=== PATIENT | male | born 1965 | race Caucasian/White ===

== ENCOUNTER 2017-04-26 05:23 | Day surgery (SDC) | payer OTHER ==
[2017-04-19 10:03] LABS: HEMATOCRIT 43.2 % (37.9-51.0); HEMOGLOBIN 15.3 g/dL (13.5-17.0); HGB HCT DIFFERENCE 2.7; MEAN CORPUSCULAR HEMOGLOBIN 30.5 pg (27.0-33.4); MEAN CORPUSCULAR HGB CONC 35.4 g/dL (32.0-36.0); MEAN CORPUSCULAR VOLUME 86 fl (80-97); RED BLOOD COUNT 5.01 10^6/uL (4.35-5.55); RED CELL DISTRIBUTION WIDTH 12.5 % (11.5-14.0); WHITE BLOOD COUNT 6.1 10^3/uL (4.0-10.5)
[2017-04-19 10:21] LABS: ANION GAP 11 (5-19); BLOOD UREA NITROGEN 13 mg/dL (7-20); CARBON DIOXIDE 27 mmol/L (22-30); CHLORIDE 105 mmol/L (98-107); CREATININE RESULT 0.75 mg/dL (0.52-1.25); GLUCOSE 99 mg/dL (75-110); POTASSIUM 4.3 mmol/L (3.6-5.0); SODIUM 142.6 mmol/L (137-145)
[~2017-04-26 05:23] MED LIST: CEFAZOLIN 1 GM/D5W RTU 1 GM/50 ML RTUPB IV PRN; LACTATED RINGERS 1000 ML IV PRN; LIDOCAINE 0.5% INJ-PF (5 MG/ML) 50 ML SDV SUBCUT PRN
[2017-04-26] MEDS ORDERED: ALBUTEROL SULFATE 0.083% NEB 2.5 MG/3 ML AMPUL NEB ONE ×2 (06:03→06:15)
[2017-04-26] MEDS ORDERED: LIDOCAINE 0.5% INJ-PF (5 MG/ML) 50 ML SDV ONE (07:21)
[2017-04-26] MEDS ORDERED: BUPIVACAINE HCL 0.25 % INJ/PF (2.5 MG/1 ML) 30 ML VIAL ONE (07:21)
[2017-04-26] MEDS ORDERED: FENTANYL CITRATE INJ/PF 250 MCG/5 ML AMPULE ONE (07:35)
[2017-04-26] MEDS ORDERED: MIDAZOLAM 2 MG/2 ML INJ ONE (07:36)
[2017-04-26] MEDS ORDERED: ACETAMINOPHEN 100 ML IV ONE (07:36)
[2017-04-26] MEDS ORDERED: CITRIC ACID/SODIUM CITRATE ORAL SOLN 15 ML UDCUP ONE (07:37)
[2017-04-26] MEDS ORDERED: METOCLOPRAMIDE HCL INJ/PF 10 MG/2 ML SDV ONE (07:38)
[2017-04-26] MEDS ORDERED: PROPOFOL INJ 200 MG/20 ML VIAL IV ONE (07:38)
[2017-04-26] MEDS ORDERED: FAMOTIDINE INJ/PF 20 MG/2 ML SDV IV ONE (07:38)
[2017-04-26] MEDS ORDERED: FENTANYL CITRATE INJ/PF 100 MCG/2 ML AMPUL IV PRN ×3 (07:57)
[2017-04-26] MEDS ORDERED: MORPHINE SULFATE 10 MG/ML INJ IV PRN (07:57)
[2017-04-26] MEDS ORDERED: MEPERIDINE HCL/PF INJ 25 MG/1 ML DISP.SYRIN IV PRN (07:57)
[2017-04-26] MEDS ORDERED: OXYCODONE-ACETAMINOPHEN 5-325 MG TABLET PO PRN ×2 (07:57)
[2017-04-26] MEDS ORDERED: DIPHENHYDRAMINE HCL 50 MG/ML VIAL IV PRN (07:57)
[2017-04-26] MEDS ORDERED: PROMETHAZINE HCL INJ 25 MG/1 ML VIAL IV PRN ×2 (07:57)
--- NOTE | 2017-04-26 08:51 | PDOC DISCHARGE SUMMARY ---
Discharge Summary (SDC) - Discharge Final Diagnosis: Right wrist ganglion cyst, dorsal aspect Date of Surgery: 04/26/17 Discharge Date: 04/26/17 Condition: Good Treatment or Instructions: Keep right hand elevated for the next 48 hours. May DC hand wrap in 48 hours. Prescription provided to patient. May shower in 72 hours. No heavy lifting pushing pulling. Return to clinic in 1 week for wound check. Prescriptions: Ketorolac Tromethamine [Toradol 10 mg Tablet] 10 mg PO Q6HP PRN #20 tablet PRN Reason: Referrals: FERNY NIÑO MD [Primary Care Provider] - Discharge Diet: As Tolerated Discharge Activity: No Lifting Over 10 Pounds, No Lifting/Push/Pulling Home Care Assistance: None Needed Report the Following to Your Physician Immediately: Shortness of Breath, Increase in Pain, Fever over 101 Degrees, Swelling
--- NOTE | 2017-04-26 08:57 | Operative Report ---
Operative Report DATE OF SURGERY: 04/26/17 PREOPERATIVE DIAGNOSIS: Dorsal aspect right wrist ganglion cyst POSTOPERATIVE DIAGNOSIS: Same OPERATION: Right hand exploration, dorsal aspect, with excision of ganglion cyst. SURGEON: MANOJ ELKINS ANESTHESIA: LMAC TISSUE REMOVED OR ALTERED: Synovitis sheath sac and contents COMPLICATIONS: None ESTIMATED BLOOD LOSS: Scant INTRAOPERATIVE FINDINGS: See below PROCEDURE: Patient was seen in the preop holding area with the right risk was marked. The patient was then taken to the operating room where LMAC anesthesia was induced. The right hand and forearm draped sterile fashion. Surgical plan and surgical timeout conducted. No tourniquet was used during the operation. It was performed using a combination of IV sedation, and local anesthetic. The wrist cyst was identified and marked. Anatomically the location of this cyst was distal to the wrist proper, approximately 2 cm distal to the nation of the extensor retinaculum. The skin was anesthetized with quarter percent Marcaine. Approximately 2-1/2 cm incision was made in the skin. Subcutaneous tissue divided. The deeper layer of fibrofatty tissue was opened, and the cyst identified. This is a classic, moderate-sized, but to her synovial sheath cyst. It was dissected out in its entirety, taking care to sweep the extensor tendon to the index finger away from the dissection plane. We took the cyst down to its level of origination which was a rather broad based fibrotic stalk. Upon amputation of the cyst, cautery was used to seal the stalk. Breast was passed off to pathology for permanent analysis. We checked the deep and superficial recesses of the wound and there was no evidence of bleeding. We felt the operation was complete. Fatty layer was closed with interrupted 3-0 Vicryl suture, and the subcutaneous tissue closed with 3-0 Vicryl suture. Skin was approximated benzoin and Steri-Strips. Bulky dressing was applied to the hand including 4 x 4's Kerlix and Ryan wrap. Patient tolerated the procedure well, taken to recovery in stable condition.
[2017-04-26] MEDS ORDERED: ONDANSETRON HCL INJ/PF 4 MG/2 ML SDV ONE (10:32)
[2017-04-26] MEDS ORDERED: LIDOCAINE 2% INJ-PF (20 MG/ML) 10 ML AMPUL ONE (10:32)
[2017-04-26] MEDS ORDERED: PHENYLEPHRINE HCL INJ/PF 10 MG/1 ML SDV ONE (10:32)
[2017-04-26] MEDS ORDERED: DEXAMETHASONE SOD PHOSPHATE INJ 4 MG/1 ML VIAL ONE (10:32)
[2017-04-26] MEDS ORDERED: GLYCOPYRROLATE INJ 0.4 MG/2 ML VIAL ONE (10:32)
[2017-04-26] MEDS ORDERED: KETOROLAC TROMETHAMINE 60 MG/2 ML SDV ONE (10:32)
[2017-04-26 10:34] VITALS: BP 117/75
== END 2017-04-26 10:20 | disposition home or self-care (01) ==
LOC: OROUT 05:23
PROVIDERS: ATTEND Surgery
PROC: 0RBN0ZZ Excision of Right Wrist Joint, Open Approach (ICD-10-PCS; principal; 2017-04-26 07:30)
DX: M67.40 Ganglion, unspecified site (principal); J45.909 Unspecified asthma, uncomplicated; G62.9 Polyneuropathy, unspecified; M19.90 Unspecified osteoarthritis, unspecified site; Z79.899 Other long term (current) drug therapy; Z79.84 Long term (current) use of oral hypoglycemic drugs; Z79.51 Long term (current) use of inhaled steroids
CPT/HCPCS: 36415; 82962; 85027; 80048; 88304 ×2; 25111; J2250; J0690; J1100; J1885; J3010; J2765; J2370; J2405; J3490 ×2; J2704; S0028; J0131; 1810

== ENCOUNTER 2017-07-30 09:40 | Emergency (ER) | payer OTHER ==
[2017-07-30] MEDS ORDERED: MORPHINE SULFATE 10 MG/ML INJ IV ONE (10:17)
[2017-07-30] MEDS ORDERED: ONDANSETRON HCL INJ/PF 4 MG/2 ML SDV IV ONE (10:17)
--- NOTE | 2017-07-30 10:26 | ER Document Report ---
ED Medical Screen (RME) - General Chief Complaint: Abdominal Pain Stated Complaint: ABDOMINAL PAIN Time Seen by Provider: 07/30/17 10:09 Notes: 52-year-old male patient with onset after eating supper 2 days ago of severe upper abdominal pain. It is intermittently causing trouble breathing. He reports the pain seems to be in the epigastric region and radiate out to the right and left and wrap all the way around to the back. 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 He did have a CT scan of the abdomen on 04/05/2017 and an MRI of the abdomen on 06/2017. There is no vascular abnormality. There was a 1.5 cm hemorrhagic and proteinaceous cyst in the lower pole of the left kidney. Exam shows a lot of guarding, palpating in the right and left lower quadrant causes pain further up in the abdomen. The point of maximal tenderness is the left abdomen at and just above the umbilicus and just to the left of the midline. Case was discussed with the radiologist and Karson Cano who recommended an noncontrasted CT renal stone protocol to start. I have greeted and performed a rapid initial assessment of this patient. A comprehensive ED assessment and evaluation of the patient, analysis of test results and completion of the medical decision making process will be conducted by additional ED providers. TRAVEL OUTSIDE OF THE [place] IN LAST 30 DAYS: No - Related Data Allergies/Adverse Reactions: hydromorphone HCl [From Dilaudid] Adverse Reaction (Verified 07/30/17 09:41) VOMITING Past Medical History - Social History Chew tobacco use (# tins/day): No Frequency of alcohol use: None Drug Abuse: None - Past Medical History Cardiac Medical History: Denies: Hx Coronary Artery Disease, Hx Heart Attack, Hx Hypertension Pulmonary Medical History: Reports: Hx Asthma - USES INHALERS Denies: Hx Bronchitis, Hx COPD, Hx Pneumonia Neurological Medical History: Denies: Hx Cerebrovascular Accident, Hx Seizures Renal/ Medical History: Denies: Hx Peritoneal Dialysis Musculoskeltal Medical History: Denies Hx Arthritis, Reports Hx Fibromyalgia Psychiatric Medical History: Denies: Hx Depression - Immunizations Immunizations up to date: Yes Hx Diphtheria, Pertussis, Tetanus Vaccination: Yes Physical Exam - Vital signs Vitals: Temp Pulse Resp BP Pulse Ox 98.8 F 78 19 144/78 H 95 07/30/17 09:44 07/30/17 09:44 07/30/17 09:44 07/30/17 09:44 07/30/17 09:44 Course - Vital Signs Vital signs: Temp Pulse Resp BP Pulse Ox 98.8 F 78 19 144/78 H 95 07/30/17 09:44 07/30/17 09:44 07/30/17 09:44 07/30/17 09:44 07/30/17 09:44
[2017-07-30 11:00] LABS: ABSOLUTE BASOPHILS # (AUTO) 0.1 10^3/uL (0.0-0.2); ABSOLUTE EOSINOPHILS # (AUTO) 0.2 10^3/uL (0.0-0.6); ABSOLUTE LYMPHOCYTES (AUTO) 3.1 10^3/uL (0.5-4.7); ABSOLUTE MONOCYTES (AUTO) 0.9 10^3/uL (0.1-1.4); ABSOLUTE NEUT (AUTO) 5.1 10^3/uL (1.7-8.2); BASOPHILS % (AUTO) 0.6 % (0-2); EOSINOPHILS % (AUTO) 1.7 % (0-6); HEMATOCRIT 47.6 % (37.9-51.0); HEMOGLOBIN 16.8 g/dL (13.5-17.0); MEAN CORPUSCULAR HEMOGLOBIN 30.4 pg (27.0-33.4); MEAN CORPUSCULAR HGB CONC 35.2 g/dL (32.0-36.0); MEAN CORPUSCULAR VOLUME 86 fl (80-97); MONOCYTES % (AUTO) 10.1 % (3-13); PLATELET COUNT 209 10^3/uL (150-450); RED BLOOD COUNT 5.51 10^6/uL (4.35-5.55); RED CELL DISTRIBUTION WIDTH 12.8 % (11.5-14.0); SEGMENTED NEUTROPHILS % (AUTO) 54.6 % (42-78); TOTAL CELLS COUNTED % (AUTO) 100 %; WHITE BLOOD COUNT 9.3 10^3/uL (4.0-10.5)
[2017-07-30 11:25] LABS: ALANINE AMINOTRANSFERASE 129 U/L (21-72); ALBUMIN 4.8 g/dL (3.5-5.0); ALKALINE PHOSPHATASE 80 U/L (38-126); ANION GAP 11 (5-19); ASPARTATE AMINO TRANSFERASE 54 U/L (17-59); BILIRUBIN,DIRECT 0.3 mg/dL (0.0-0.4); BILIRUBIN,TOTAL 0.8 mg/dL (0.2-1.3); BLOOD UREA NITROGEN 12 mg/dL (7-20); CALCIUM 10.3 mg/dL (8.4-10.2); CARBON DIOXIDE 30 mmol/L (22-30); CHLORIDE 102 mmol/L (98-107); GLUCOSE 98 mg/dL (75-110); LIPASE 302.6 U/L (23-300); POTASSIUM 4.1 mmol/L (3.6-5.0); SODIUM 143.4 mmol/L (137-145); TOTAL PROTEIN 7.5 g/dL (6.3-8.2)
--- NOTE | 2017-07-30 11:38 | RADIOLOGY REPORT (SQ) ---
EXAM DESCRIPTION: CT LTD RENAL STONE PROTOCOL ON COMPLETED DATE/TIME: 07/30/2017 11:20 am REASON FOR STUDY: Severe epigastric and left mid abdomen pain COMPARISON: 04/05/2016 TECHNIQUE: CT scan of the abdomen and pelvis performed without intravenous or oral contrast. Images reviewed with lung, soft tissue, and bone windows. Reconstructed coronal and sagittal MPR images revi ewed. All images stored on PACS. All CT scanners at this facility use dose modulation, iterative reconstruction, and/or weight based d osing when appropriate to reduce radiation dose to as low as reasonably achievable (ALARA). [facility]: Dose Right [facility]: CareDose [facility]: Dose Right [facility]: Teradose 4D [facility]: [employer] RADIATION DOSE: CT Rad equipment meets quality standard of care and radiation dose reduction techniq ues were employed. CTDIvol: 10.2 mGy. DLP: 600 mGy-cm.mGy. LIMITATIONS: None. FINDINGS: LOWER CHEST: No significant findings. No nodules or infiltrates. NON-CONTRASTED LIVER, SPLEEN, ADRENALS: Evaluation limited by lack of IV contrast. No identified sign ificant masses. PANCREAS: No masses. No peripancreatic inflammatory changes. GALLBLADDER: No identified stones by CT criteria. No inflammatory changes to suggest cholecystitis. RIGHT KIDNEY AND URETER: No suspicious masses. Assessment limited by lack of IV contrast. No signif icant calcifications. No hydronephrosis or hydroureter. LEFT KIDNEY AND URETER: Hemorrhagic cyst lower pole. No significant calcifications. No hydronephr osis or hydroureter. AORTA AND RETROPERITONEUM: No aneurysm. No retroperitoneal masses or adenopathy. BOWEL AND PERITONEAL CAVITY: No obvious masses or inflammatory changes. No free fluid. APPENDIX: Normal. PELVIS, BLADDER, AND ABDOMINAL WALL:No abnormal masses. No free fluid. Bladder normal. BONES: No significant findings. OTHER: No other significant finding. IMPRESSION: No acute findings in the abdomen or pelvis. COMMENT: Quality ID # [id number]: Final reports with documentation of one or more dose reduction techniques (e.g., Automated exposure control, adjustment of the mA and/or kV according to patient size, use of iterative reconstruction technique) TECHNICAL DOCUMENTATION: JOB ID: [id number]- All Rights Reserved
[2017-07-30] MEDS ORDERED: FAMOTIDINE INJ/PF 20 MG/2 ML SDV IV ONE (11:39)
[2017-07-30] MEDS ORDERED: NORMAL SALINE 1000 ML 1,000 ML IV ONE (11:40)
[2017-07-30] MEDS ORDERED: MAG HYDROX/AL HYDROX/SIMETH SUSP 30 ML UDCUP PO ONE (11:41)
[2017-07-30] MEDS ORDERED: METOCLOPRAMIDE HCL ORAL SOLN 10 MG/10 ML UDCUP PO ONE (11:41)
[2017-07-30] MEDS ORDERED: LIDOCAINE 2% VISCOUS SOLN 20 ML UDCUP PO ONE (11:41)
--- NOTE | 2017-07-30 12:53 | ER Document Report ---
ED General - General Chief Complaint: Abdominal Pain Stated Complaint: ABDOMINAL PAIN Time Seen by Provider: 07/30/17 10:09 TRAVEL OUTSIDE OF THE [place] IN LAST 30 DAYS: No - HPI Patient complains to provider of: Epigastric abdominal pain Notes: Epigastric abdominal pain ongoing for the last 2 3 days. Patient states no nausea no vomiting. Patient states has a history of [place] recent upper scope with only significant history of GERD. Patient states she is on Prilosec twice a day. Patient states that he does not drink any alcohol no increased NSAID use. No abdominal surgery. Patient resting comfortably upon my evaluation states his morphine did not relieve any of his pain. - Related Data Allergies/Adverse Reactions: hydromorphone HCl [From Dilaudid] Adverse Reaction (Verified 07/30/17 09:41) VOMITING Past Medical History - Social History Smoking Status: Never Smoker Chew tobacco use (# tins/day): No Frequency of alcohol use: None Drug Abuse: None Family History: Reviewed & Not Pertinent Patient has suicidal ideation: No Patient has homicidal ideation: No - Past Medical History Cardiac Medical History: Denies: Hx Coronary Artery Disease, Hx Heart Attack, Hx Hypertension Pulmonary Medical History: Reports: Hx Asthma - USES INHALERS Denies: Hx Bronchitis, Hx COPD, Hx Pneumonia Neurological Medical History: Denies: Hx Cerebrovascular Accident, Hx Seizures Renal/ Medical History: Denies: Hx Peritoneal Dialysis Musculoskeltal Medical History: Denies Hx Arthritis, Reports Hx Fibromyalgia Psychiatric Medical History: Denies: Hx Depression - Immunizations Immunizations up to date: Yes Hx Diphtheria, Pertussis, Tetanus Vaccination: Yes Hx Pneumococcal Vaccination: 01/26/11 Review of Systems - Review of Systems Constitutional: No symptoms reported EENT: No symptoms reported Cardiovascular: No symptoms reported Respiratory: No symptoms reported Gastrointestinal: Abdominal pain Genitourinary: No symptoms reported Male Genitourinary: No symptoms reported Musculoskeletal: No symptoms reported Skin: No symptoms reported Hematologic/Lymphatic: No symptoms reported Neurological/Psychological: No symptoms reported -: Yes All other systems reviewed and negative Physical Exam - Vital signs Vitals: Temp Pulse Resp BP Pulse Ox 98.8 F 78 19 144/78 H 95 07/30/17 09:44 07/30/17 09:44 07/30/17 09:44 07/30/17 09:44 07/30/17 09:44 Interpretation: Normal - General General appearance: Appears well, Alert - HEENT Head: Normocephalic, Atraumatic Eyes: Normal Pupils: PERRL - Respiratory Respiratory status: No respiratory distress Chest status: Nontender Breath sounds: Normal Chest palpation: Normal - Cardiovascular Rhythm: Regular Heart sounds: Normal auscultation Murmur: No - Abdominal Inspection: Normal Distension: No distension Bowel sounds: Normal Tenderness: Tender - Epigastric tenderness mild to moderate guarding or rebound Organomegaly: No organomegaly - Back Back: Normal, Nontender - Extremities General upper extremity: Normal inspection, Nontender, Normal color, Normal ROM , Normal temperature General lower extremity: Normal inspection, Nontender, Normal color, Normal ROM , Normal temperature, Normal weight bearing. No: Tico's sign - Neurological Neuro grossly intact: Yes Cognition: Normal Orientation: AAOx4 Brent Coma Scale Eye Opening: Spontaneous Rashida Coma Scale Verbal: Oriented Brent Coma Scale Motor: Obeys Commands Rashida Coma Scale Total: 15 Speech: Normal Motor strength normal: LUE, RUE, LLE, RLE Sensory: Normal - Psychological Associated symptoms: Normal affect, Normal mood - Skin Skin Temperature: Warm Skin Moisture: Dry Skin Color: Normal Course - Re-evaluation Re-evalutation: 07/30/17 15:09 Patient had very slight elevation in his lipase at 302. Patient was received a GI cocktail which relieved his pain. More likely underlying gastritis. Patient is Royal on omeprazole. Will add on Carafate and Reglan to his regimen highly encouraged patient follow-up with his GI specialist. Patient states understanding. The patient presents with abdominal pain without signs of peritonitis or other life-threatening or serious etiology. The patient appears stable for discharge and has been instructed to return immediately if the symptoms worsen in any way, or in 8-12hr if not improved for re-evaluation. The patient has been instructed to return if the symptoms worsen or change in any way. - Vital Signs Vital signs: Temp Pulse Resp BP Pulse Ox 98.3 F 80 18 138/74 H 100 07/30/17 13:15 07/30/17 13:15 07/30/17 13:15 07/30/17 13:15 07/30/17 13:15 - Laboratory Result Diagrams: 07/30/17 10:40 07/30/17 10:40 Laboratory results interpreted by me: 07/30/17 10:40 Calcium 10.3 H ALT 129 H Lipase 302.6 H Discharge - Discharge Clinical Impression: Abdominal pain Qualifiers: Abdominal location: epigastric Qualified Code(s): R10.13 - Epigastric pain Instructions: Abdominal Pain ([facility]), Gastritis ([facility]) Additional Instructions: Your evaluation today CT scan does not show any significant pathology causing her abdominal pain. Through the history and the presentation of your abdominal pain I do believe he may have underlying gastritis. Please continue your home medications. 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 Return to the ER symptoms worsen. Prescriptions: Metoclopramide HCl [Reglan] 5 mg PO Q6 #30 tablet Sucralfate [Carafate 1 gm Tablet] 1 gm PO ACHS #120 tablet Forms: Return to Work
[2017-07-30 13:17] VITALS: BP 138/74
== END 2017-07-30 13:15 | disposition home or self-care (01) ==
LOC: ER 09:40
DX: R10.13 Epigastric pain (principal); Z88.6 Allergy status to analgesic agent
CPT/HCPCS: 99284; 96361; 96374; 96375; 36415; 83690; 85025; 80053; 76380; J3490; J2270; J2405; J7030; S0028

== ENCOUNTER → 2018-07-10 | Outpatient (CLI) | payer OTHER ==
[~2018-07-10] MED LIST changes: +AMINOPHYLLINE INJ/PF 250 MG/10 ML SDV IV ONE; -CEFAZOLIN 1 GM/D5W RTU 1 GM/50 ML RTUPB IV PRN; -LACTATED RINGERS 1000 ML IV PRN; -LIDOCAINE 0.5% INJ-PF (5 MG/ML) 50 ML SDV SUBCUT PRN; +REGADENOSON INJ 0.4 MG/5 ML DISP.SYRIN IV ONE
--- NOTE | 2018-07-10 13:15 | RADIOLOGY REPORT (SQ) ---
EXAM DESCRIPTION: CAROTID DOPPLER COMPLETED DATE/TIME: 07/10/2018 12:56 pm REASON FOR STUDY: TIA R06.02 SHORTNESS OF BREATH COMPARISON: None. TECHNIQUE: Grayscale ultrasound, Doppler velocity and spectra, and color Doppler images acquired of the extra-cranial carotid and vertebral arteries. Images stored on PACS. LIMITATIONS: None. FINDINGS: RIGHT CAROTID CCA Velocities: Within normal limits. ICA Velocities Peak systolic 0.64 m/s. End diastolic 0.25 m/s. Proximal ICA/CCA peak systolic ratio 1.0. Spectra normal. No significant plaque. LEFT CAROTID CCA Velocities: Within normal limits. ICA Velocities Peak systolic 0.75 m/s. End diastolic 0.31 m/s. Proximal ICA/CCA peak systolic ratio 1.2. Spectra normal. No significant plaque. VERTEBRAL ARTERIES: Antegrade flow. Normal waveforms. SUBCLAVIAN ARTERIES: No finding. OTHER: No other significant finding. IMPRESSION: NO HEMODYNAMICALLY SIGNIFICANT STENOSIS. COMMENT: Quality ID #195: Velocity criteria are extrapolated from the diameter data as defined by t he Society of Radiologists in Ultrasound Consensus Conference. Radiology 2003: 229; 340-346. TECHNICAL DOCUMENTATION: JOB ID: [id number] [employer]- All Rights Reserved Reading location - IP/workstation name: [email or web address]
--- NOTE | 2018-07-10 19:07 | DRAGON STRESS TEST REPORT ---
INTRAVENOUS LEXISCAN CARDIOLITE STRESS TEST USING SINGLE PHOTON EMMISION COMPUTERIZED TOMOGRAPHIC. DATE OF PROCEDURE: July 10, 2018, INDICATION : Shortness of breath CARDIAC RISK FACTORS: No risk factors reported RESTING EKG: Sinus rhythm without any baseline ST-T wave changes STRESS EKG: No significant ST segment changes noted with LexiScan bolus REASON FOR TERMINATION: Protocol. PROCEDURE REPORT: Baseline heart rate 74 beats per minute with blood pressure of 118/92. Patient had no significant complaints. Patient was bolused with Lexiscan 0.4 mg intravenously followed by saline bolus. Heart rate at 2 minutes post bolus 107 with a blood pressure of 128/78. 3 minutes post bolus heart rate 90 with blood pressure of 128/84. No significant EKG changes were noted. Patient had no significant complaints during the procedure or postprocedure. CONCLUSIONS: Normal EKG and hemodynamic response to IV LexiScan. NUCLEAR DATA: At rest the patient was given 14.97 millicuries of technetium 99 sestamibi injected intravenously. As per protocol rest gated SPECT images were obtained. On day of stress test, the patient was given intravenous LexiScan at a dose of 0.4 mg in 5 mL intravenously, followed by flush with normal saline. Subsequently the stress dose of 43.8 millicuries of technetium 99 sestamibi was injected intravenously. As per protocol stress gated images were obtained. NUCLEAR INTERPRETATION: Both raw and processed data were used for interpretation. Visual, qualitative, computer-generated quantitative data was used. There was good myocardial uptake of technetium compound. Motion artifact and soft tissue attenuations were noted. Increased visceral uptake was noted. No definitive areas of transient perfusion defect noted, No definitive areas of fixed perfusion defect or scars noted. EKG gated imaging showed LV EF at 56 %, rest and stress gated EF similar visually. T. I D. ratio was 1.03. Lung heart ratio noted to be within normal limits 0.33. No significant extracardiac and abnormal radiotracer activities were noted. RV free wall uptake was noted to be WNL. IMPRESSION: Also refer to comments under nuclear interpretation. Also test results needs to be interpreted in the context of pretest probability. 1. No definitive areas of transient perfusion defect noted. 2. There is no definitive scintigraphic evidence of myocardial infarction/scar. 3. EKG gated imaging shows left ventricular ejection fraction of approx. 56 %. 4. Clinical correlation requested as worse disease and or balanced ischemia could be missed. In approximately 10% of the cases Lexiscan may not cause adequate vasodilatory stress. RECOMMENDATIONS: Aggressive risk factor modification and medical management. Further evaluation may be needed if continued symptoms or other high risk indicators are noted on clinical evaluation. Close cardiology follow-up is also recommended. Clinical correlation with echocardiogram derived ejection fraction. Inability to exercise by itself can lead to increased cardiovascular event risks. Consider cardiology consultation and or follow-up if clinically indicated. I am available for cardiology evaluation and consultation if requested by the passenger representative, unless patient already has a psychologist counseling. Dr. Susanne Fernandez. MRCP Board certified in cardiology and sleep medicine. Board certified in nuclear cardiology, adult echocardiography. JOHNNA
== END ==
LOC: RAD 06:58
PROVIDERS: ATTEND Internal Medicine
DX: G45.9 Transient cerebral ischemic attack, unspecified (principal); R06.02 Shortness of breath
CPT/HCPCS: 93017; 93880; 78452; A9500; J2785; J0280; Q9969

== ENCOUNTER → 2018-07-18 | Outpatient (CLI) | payer OTHER ==
--- NOTE | 2018-07-18 10:04 | RADIOLOGY REPORT (SQ) ---
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 RADIATION DOSE: NA LIMITATIONS: none FINDINGS: LUNGS AND PLEURA: No opacities, masses or pneumothorax. No pleural effusion. MEDIASTINUM AND HILAR STRUCTURES: No masses or contour abnormalities. HEART AND VASCULAR STRUCTURES: Heart normal size. No evidence for failure. BONES: No acute findings. HARDWARE: None in the chest. OTHER: No other significant finding. IMPRESSION: NO ACUTE RADIOGRAPHIC FINDING IN THE CHEST. TECHNICAL DOCUMENTATION: JOB ID: [id number] [employer]- All Rights Reserved Reading location - IP/workstation name: [email or web address]
--- NOTE | 2018-07-18 11:37 | RADIOLOGY REPORT (SQ) ---
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 Eight matching views of the lungs acquired following injection of MAA. LIMITATIONS: None. FINDINGS: VENTILATION: Symmetric and homogeneous distribution of DTPA aerosol during ventilatory pha se. No significant areas of photopenia. PERFUSION: Perfusion images with normal homogenous activity and no wedge-shaped or segmental defects. No ventilation-perfusion mismatches. OTHER: No other significant finding. IMPRESSION: NORMAL VENTILATION-PERFUSION LUNG SCAN. NEGATIVE FOR PULMONARY EMBOLI. TECHNICAL DOCUMENTATION: JOB ID: [id number] [employer]- All Rights Reserved Reading location - IP/workstation name: [email or web address]
== END ==
LOC: RAD 09:14
PROVIDERS: ATTEND Internal Medicine
DX: I27.24 Chronic thromboembolic pulmonary hypertension (principal)
CPT/HCPCS: 71046; 78582; A9540; A9567; Q9969

== ENCOUNTER 2019-07-06 18:00 | Observation (INO) | payer OTHER ==
--- NOTE | 2019-07-06 20:04 | RADIOLOGY REPORT (SQ) ---
EXAM DESCRIPTION: CHEST 2 VIEWS COMPLETED DATE/TIME: 07/06/2019 7:49 pm REASON FOR STUDY: fever COMPARISON: 07/18/2018 TECHNIQUE: Frontal and lateral radiographic views of the chest acquired. NUMBER OF VIEWS: Two view. LIMITATIONS: None. FINDINGS: LUNGS AND PLEURA: No pneumothorax. No consolidation or pleural effusion. MEDIASTINUM AND HILAR STRUCTURES: Stable. HEART AND VASCULAR STRUCTURES: Stable. BONES: No acute findings. HARDWARE: None in the chest. OTHER: No other significant finding. IMPRESSION: NO ACUTE FINDINGS. TECHNICAL DOCUMENTATION: JOB ID: [id number]- All Rights Reserved Reading location - IP/workstation name: [email or web address]
[2019-07-06] MEDS: NORMAL SALINE 1000 ML 1,000 ML IV PRN (20:09)
[2019-07-06] MEDS: METRONIDAZOLE 500 MG/NS RTU 500 MG/100 ML RTUPB IV SCH (21:32)
[2019-07-06] MEDS ORDERED: LORATADINE 10 MG TABLET PO ONE (22:15)
[2019-07-06] MEDS ORDERED: LOSARTAN POTASSIUM 25 MG TABLET PO ONE (22:15)
[2019-07-06] MEDS ORDERED: PANTOPRAZOLE SODIUM 20 MG TABLET.DR PO ONE (22:15)
[2019-07-06] MEDS ORDERED: FLUOXETINE HCL 20 MG CAPSULE PO ONE (22:15)
[2019-07-06] MEDS ORDERED: CHOLECALCIFEROL (D3) 1,000 UNIT (25 MCG) TABLET PO ONE (23:00)
[2019-07-06] MEDS ORDERED: MONTELUKAST SODIUM 10 MG TABLET PO ONE (23:00)
[2019-07-06 23:03] LABS: HEMATOCRIT 37.7 % (37.9-51.0); HEMOGLOBIN 13.4 g/dL (13.5-17.0); MEAN CORPUSCULAR HEMOGLOBIN 30.3 pg (27.0-33.4); MEAN CORPUSCULAR HGB CONC 35.6 g/dL (32.0-36.0); MEAN CORPUSCULAR VOLUME 85 fl (80-97); PLATELET COUNT 238 10^3/uL (150-450); RED BLOOD COUNT 4.44 10^6/uL (4.35-5.55); RED CELL DISTRIBUTION WIDTH 12.5 % (11.5-14.0)
[2019-07-06 23:35] LABS: ALBUMIN 3.4 g/dL (3.5-5.0); ALKALINE PHOSPHATASE 74 U/L (38-126); ANION GAP 12 (5-19); ASPARTATE AMINO TRANSFERASE 24 U/L (17-59); BILIRUBIN,DIRECT 0.1 mg/dL (0.0-0.4); BILIRUBIN,TOTAL 0.3 mg/dL (0.2-1.3); BLOOD UREA NITROGEN 12 mg/dL (7-20); CALCIUM 8.8 mg/dL (8.4-10.2); CARBON DIOXIDE 26 mmol/L (22-30); CHLORIDE 102 mmol/L (98-107); GLUCOSE 188 mg/dL (75-110); POTASSIUM 3.4 mmol/L (3.6-5.0); TOTAL PROTEIN 5.9 g/dL (6.3-8.2)
[2019-07-06 23:44] LABS: ARTERIAL BLOOD BASE EXCESS 2.3 mmol/L; ARTERIAL BLOOD H2CO3 1.33 mmol/L (1.05-1.35); ARTERIAL BLOOD HCO3 27.4 mmol/L (20-24); ARTERIAL BLOOD O2 SATURATION 95.5 % (94-98); ARTERIAL BLOOD PCO2 44.1 mmHg (35-45); ARTERIAL BLOOD PH 7.41 (7.35-7.45); ARTERIAL BLOOD PO2 77.4 mmHg (80-100); ARTERIAL BLOOD TOTAL CO2 28.7 mmol/L (23-27)
[2019-07-06 23:47] LABS: ARTERIAL BLOOD FIO2 ROOM AIR
[2019-07-07] MEDS: METRONIDAZOLE 500 MG/NS RTU 500 MG/100 ML RTUPB IV SCH ×3 (02:46→15:28)
[2019-07-07 03:49] LABS: APPEARANCE,URINE SLIGHTLY-CLOUDY; BILIRUBIN,URINE NEGATIVE (NEGATIVE); COLOR,URINE YELLOW; GLUCOSE, URINE NEGATIVE (NEGATIVE); KETONES,URINE NEGATIVE (NEGATIVE); LEUKOCYTE ESTERASE,URINE NEGATIVE (NEGATIVE); NITRITE,URINE NEGATIVE (NEGATIVE); PROTEIN,URINE NEGATIVE (NEGATIVE); UROBILINOGEN,URINE NEGATIVE mg/dL (<2.0)
[2019-07-07] MEDS: ACETAMINOPHEN 325 MG TABLET PO PRN ×2 (06:43→15:28)
--- NOTE | 2019-07-07 07:49 | PDOC H&P ---
History of Present Illness Admission Date/PCP: 07/06/19 18:00 FERNY NIÑO MD History of Present Illness: TREVOR SANDOVAL is a 54 year old male, He has a history of allergy, eczematous dermatitis, he came to the office for evaluation of diarrhea, diffuse rash, and fever. The apparent etiology was not clear in the office, I felt patient needed to be admitted to the hospital for further evaluation and management. He was admitted for observation, the hemogram was normal there was no eosinophilia, no leukocytosis. He also complained of shortness of breath, the chest x-ray was negative arterial blood gas showed normal pH, PO2 was 77. He was empirically started on intravenous Flagyl IV fluid therapy, interestingly the stool sample was not watery, it was formed stool, could not evaluate stool for C. difficile toxin.He is on dupilumab, a biologic monoclonal antibody for the management of eczema, patient was admitted for IV fluid therapy to restore loss of volume Past Medical History Pulmonary Medical History: Reports: Asthma - USES INHALERS Musculoskeltal Medical History: Reports: Fibromyalgia Psychiatric Medical History: Reports: Depression Social History Smoking Status: Never Smoker Electronic Cigarette use?: No Frequency of Alcohol Use: Rare Hx Recreational Drug Use: No Drugs: None Hx Prescription Drug Abuse: No Family History Family History: Reviewed & Not Pertinent Parental Family History Reviewed: Yes Children Family History Reviewed: Yes Sibling(s) Family History Reviewed.: Yes Medication/Allergy Home Medications: Budesonide/Formoterol Fumarate [Symbicort HFA 160-4.5 mcg Inhaler 6 gm] 2 puff IH Q12 07/07/19 Cetirizine HCl [Zyrtec 10 mg Tablet] 10 mg PO DAILY 07/07/19 Cholecalciferol (Vitamin D3) [Vitamin D3] 1,000 unit PO DAILY 07/07/19 Dicyclomine HCl [Bentyl 10 mg Capsule] 10 mg PO QID 07/07/19 Dupilumab [Dupixent] 300 mg SQ BID 07/07/19 Esomeprazole Mag Trihydrate [Nexium] 40 mg PO DAILY 07/07/19 Fenofibrate Nanocrystallized [Tricor 145 mg Tablet] 145 mg PO DAILY 07/07/19 Fluticasone Propionate [Flonase Nasal [place] 50 Mcg/[place] 16 gm] 2 sprays NASL DAILY 07/07/19 Losartan Potassium [Cozaar 25 mg Tablet] 25 mg PO DAILY 07/07/19 Meclizine HCl [Motion Sickness Relief] 25 mg PO TID 07/07/19 Metronidazole [Flagyl 500 mg Tablet] 500 mg PO TID #21 tablet 07/07/19 Montelukast Sodium [Singulair 10 mg Tablet] 10 mg PO QHS 07/07/19 Pregabalin [Lyrica 50 mg Capsule] 50 mg PO TID 07/07/19 Scopolamine Hydrobromide [Transderm-Scop 1.5 mg Patch] 1 patch TD Q3DAYS 07/07/19 Simvastatin [Zocor 20 mg Tablet] 20 mg PO QHS 07/07/19 Trazodone HCl [Desyrel 50 mg Tablet] 50 mg PO QHS 07/07/19 Allergies/Adverse Reactions: hydromorphone HCl [From Dilaudid] Adverse Reaction (Verified 07/30/17 09:41) VOMITING Review of Systems Constitutional: PRESENT: chills. ABSENT: fever(s), headache(s), weight gain, weight loss Eyes: ABSENT: visual disturbances Ears: ABSENT: hearing changes Cardiovascular: ABSENT: chest pain, dyspnea on exertion, edema, orthropnea, palpitations Respiratory: ABSENT: cough, hemoptysis Gastrointestinal: PRESENT: diarrhea, nausea Genitourinary: ABSENT: dysuria, hematuria Musculoskeletal: ABSENT: joint swelling Integumentary: ABSENT: rash, wounds Neurological: ABSENT: abnormal gait, abnormal speech, confusion, dizziness, focal weakness, syncope Psychiatric: ABSENT: anxiety, depression, homidical ideation, suicidal ideation Endocrine: ABSENT: cold intolerance, heat intolerance, menstrual abnormalities, polydipsia, polyuria Hematologic/Lymphatic: ABSENT: easy bleeding, easy bruising, lymphadenopathy Physical Exam Vital Signs: Temp Pulse Resp BP Pulse Ox 98.2 F 77 16 113/69 96 07/07/19 05:43 07/07/19 05:43 07/07/19 05:43 07/07/19 05:43 07/07/19 05:43 Intake & Output 07/06/19 07/07/19 07/08/19 06:59 06:59 06:59 Intake Total 200 Balance 200 Weight 91.7 kg General appearance: PRESENT: no acute distress Head exam: PRESENT: atraumatic, normocephalic Eye exam: PRESENT: conjunctiva pink, EOMI, PERRLA Ear exam: PRESENT: normal external ear exam Neck exam: PRESENT: full ROM Respiratory exam: PRESENT: clear to auscultation kathy Cardiovascular exam: PRESENT: RRR, +S1, +S2 Vascular exam: PRESENT: normal capillary refill GI/Abdominal exam: PRESENT: normal bowel sounds, soft Rectal exam: PRESENT: deferred Neurological exam: PRESENT: alert, awake, oriented to person, oriented to place, oriented to time, oriented to situation, CN II-XII grossly intact Psychiatric exam: PRESENT: appropriate affect, normal mood Skin exam: PRESENT: dry, intact, warm Results Laboratory Results: 07/06/19 22:33 07/06/19 22:33 07/06/19 07/06/19 07/06/19 22:05 22:33 22:33 WBC 6.0 RBC 4.44 Hgb 13.4 L Hct 37.7 L MCV 85 MCH 30.3 MCHC 35.6 RDW 12.5 Plt Count 238 Carbonic Acid 1.33 HCO3/H2CO3 Ratio 20:1 ABG pH 7.41 ABG pCO2 44.1 ABG pO2 77.4 L ABG HCO3 27.4 H ABG O2 Saturation 95.5 ABG Base Excess 2.3 FiO2 ROOM AIR Sodium 139.5 Potassium 3.4 L Chloride 102 Carbon Dioxide 26 Anion Gap 12 BUN 12 Creatinine 0.65 Est GFR ( Amer) > 60 Glucose 188 H Calcium 8.8 Total Bilirubin 0.3 AST 24 Alkaline Phosphatase 74 Total Protein 5.9 L Albumin 3.4 L Urine Color Urine Appearance Urine pH Ur Specific [place] Urine Protein Urine Glucose (UA) Urine Ketones Urine Blood Urine Nitrite Ur Leukocyte Esterase Urine WBC (Auto) Urine RBC (Auto) 07/07/19 03:25 WBC RBC Hgb Hct MCV MCH MCHC RDW Plt Count Carbonic Acid HCO3/H2CO3 Ratio ABG pH ABG pCO2 ABG pO2 ABG HCO3 ABG O2 Saturation ABG Base Excess FiO2 Sodium Potassium Chloride Carbon Dioxide Anion Gap BUN Creatinine Est GFR ( Amer) Glucose Calcium Total Bilirubin AST Alkaline Phosphatase Total Protein Albumin Urine Color YELLOW Urine Appearance SLIGHTLY-CLOUDY Urine pH 6.0 Ur Specific [place] 1.020 Urine Protein NEGATIVE Urine Glucose (UA) NEGATIVE Urine Ketones NEGATIVE Urine Blood NEGATIVE Urine Nitrite NEGATIVE Ur Leukocyte Esterase NEGATIVE Urine WBC (Auto) 5 Urine RBC (Auto) 6 Impressions: Chest X-Ray 07/06/19 00:00 IMPRESSION: NO ACUTE FINDINGS. Assessment & Plan - Diagnosis (1) Acute gastroenteritis Is this a current diagnosis for this admission?: Yes Plan: Patient present with symptoms and signs of acute gastroenteritis, This is probably from viral etiology, he is admitted to be treated with IV fluid (2) Eczematous dermatitis Qualifiers: Eczema type: unspecified Qualified Code(s): L30.9 - Dermatitis, unspecified Is this a current diagnosis for this admission?: Yes
[2019-07-07] MEDS: NORMAL SALINE 1000 ML 1,000 ML IV PRN (09:25)
[2019-07-07] MEDS ORDERED: LOSARTAN POTASSIUM 25 MG TABLET PO SCH (10:00)
[2019-07-07] MEDS ORDERED: PANTOPRAZOLE SODIUM 20 MG TABLET.DR PO SCH (10:00)
[2019-07-07] MEDS ORDERED: MONTELUKAST SODIUM 10 MG TABLET PO SCH (10:00)
[2019-07-07] MEDS ORDERED: FLUOXETINE HCL 20 MG CAPSULE PO SCH (10:00)
[2019-07-07] MEDS ORDERED: LORATADINE 10 MG TABLET PO SCH (10:00)
[2019-07-07] MEDS ORDERED: CHOLECALCIFEROL (D3) 1,000 UNIT (25 MCG) TABLET PO SCH (10:00)
[2019-07-07 17:34] VITALS: BP 113/69
--- NOTE | 2019-07-07 19:57 | PDOC DISCHARGE SUMMARY ---
Impression - Admit/DC Date/PCP Admission Date/Primary Care Provider: 07/06/19 18:00 FERNY NIÑO MD Discharge Date: 07/07/19 - Discharge Diagnosis (1) Acute gastroenteritis Is this a current diagnosis for this admission?: Yes (2) Eczematous dermatitis Is this a current diagnosis for this admission?: Yes - Additional Information Discharge Diet: As Tolerated Discharge Activity: Activity As Tolerated, Balance Activity w/Rest Referrals: FERNY NIÑO MD [Primary Care Provider] - (Will call you with appointment tomorrow.) Prescriptions: Metronidazole [Flagyl 500 mg Tablet] 500 mg PO TID #21 tablet Home Medications: Budesonide/Formoterol Fumarate [Symbicort HFA 160-4.5 mcg Inhaler 6 gm] 2 puff IH Q12 07/07/19 Cetirizine HCl [Zyrtec 10 mg Tablet] 10 mg PO DAILY 07/07/19 Cholecalciferol (Vitamin D3) [Vitamin D3] 1,000 unit PO DAILY 07/07/19 Dicyclomine HCl [Bentyl 10 mg Capsule] 10 mg PO QID 07/07/19 Dupilumab [Dupixent] 300 mg SQ BID 07/07/19 Esomeprazole Mag Trihydrate [Nexium] 40 mg PO DAILY 07/07/19 Fenofibrate Nanocrystallized [Tricor 145 mg Tablet] 145 mg PO DAILY 07/07/19 Fluticasone Propionate [Flonase Nasal [place] 50 Mcg/[place] 16 gm] 2 sprays NASL DAILY 07/07/19 Losartan Potassium [Cozaar 25 mg Tablet] 25 mg PO DAILY 07/07/19 Meclizine HCl [Motion Sickness Relief] 25 mg PO TID 07/07/19 Metronidazole [Flagyl 500 mg Tablet] 500 mg PO TID #21 tablet 07/07/19 Montelukast Sodium [Singulair 10 mg Tablet] 10 mg PO QHS 07/07/19 Pregabalin [Lyrica 50 mg Capsule] 50 mg PO TID 07/07/19 Scopolamine Hydrobromide [Transderm-Scop 1.5 mg Patch] 1 patch TD Q3DAYS 07/07/19 Simvastatin [Zocor 20 mg Tablet] 20 mg PO QHS 07/07/19 Trazodone HCl [Desyrel 50 mg Tablet] 50 mg PO QHS 07/07/19 History of Present Illiness History of Present Illness: TREVOR SANDOVAL is a 54 year old male, He has a history of allergy, eczematous dermatitis, he came to the office for evaluation of diarrhea, diffuse rash, and fever. The apparent etiology was not clear in the office, I felt patient needed to be admitted to the hospital for further evaluation and management. He was admitted for observation, the hemogram was normal there was no eosinophilia, no leukocytosis. He also complained of shortness of breath, the chest x-ray was negative arterial blood gas showed normal pH, PO2 was 77. He was empirically started on intravenous Flagyl IV fluid therapy, interestingly the stool sample was not watery, it was formed stool, could not evaluate stool for C. difficile toxin.He is on dupilumab, a biologic monoclonal antibody for the management of eczema, patient was admitted for IV fluid therapy to restore loss of volume Hospital Course Hospital Course: Patient was admitted for the management of acute gastroenteritis, felt to be due to virus etiology. The stool was not watery it was a frequent formed stool, there was a concern he may have C. difficile infection but because the stool was semi-formed, the study was discarded. He was treated empirically with intravenous Flagyl, IV fluid. No specific pathogen was identified, patient responded to treatment, he felt much better he was brought in for observation. Physical Exam Vital Signs: Temp Pulse Resp BP Pulse Ox 98.8 F 76 18 113/69 96 07/07/19 17:32 07/07/19 17:32 07/07/19 17:32 07/07/19 17:32 07/07/19 17:32 Intake & Output 07/06/19 07/07/19 07/08/19 06:59 06:59 06:59 Intake Total 1200 540 Balance 1200 540 Weight 91.7 kg General appearance: PRESENT: no acute distress Eye exam: PRESENT: PERRLA Respiratory exam: PRESENT: chest wall tenderness Cardiovascular exam: PRESENT: +S1, +S2 GI/Abdominal exam: PRESENT: soft Neurological exam: PRESENT: alert, CN II-XII grossly intact Results Laboratory Results: WBC 6.0 10^3/uL (4.0-10.5) 07/06/19 22:33 RBC 4.44 10^6/uL (4.35-5.55) 07/06/19 22:33 Hgb 13.4 g/dL (13.5-17.0) L 07/06/19 22:33 Hct 37.7 % (37.9-51.0) L 07/06/19 22:33 MCV 85 fl (80-97) 07/06/19 22:33 MCH 30.3 pg (27.0-33.4) 07/06/19 22:33 MCHC 35.6 g/dL (32.0-36.0) 07/06/19 22:33 RDW 12.5 % (11.5-14.0) 07/06/19 22:33 Plt Count 238 10^3/uL (150-450) 07/06/19 22:33 Carbonic Acid 1.33 mmol/L (1.05-1.35) 07/06/19 22:05 HCO3/H2CO3 Ratio 20:1 07/06/19 22:05 ABG pH 7.41 (7.35-7.45) 07/06/19 22:05 ABG pCO2 44.1 mmHg (35-45) 07/06/19 22:05 ABG pO2 77.4 mmHg (80-100) L 07/06/19 22:05 ABG HCO3 27.4 mmol/L (20-24) H 07/06/19 22:05 ABG Total CO2 28.7 mmol/L (23-27) H 07/06/19 22:05 ABG O2 Saturation 95.5 % (94-98) 07/06/19 22:05 ABG Base Excess 2.3 mmol/L 07/06/19 22:05 FiO2 ROOM AIR 07/06/19 22:05 Sodium 139.5 mmol/L (137-145) 07/06/19 22:33 Potassium 3.4 mmol/L (3.6-5.0) L 07/06/19 22:33 Chloride 102 mmol/L (98-107) 07/06/19 22:33 Carbon Dioxide 26 mmol/L (22-30) 07/06/19 22:33 Anion Gap 12 (5-19) 07/06/19 22:33 BUN 12 mg/dL (7-20) 07/06/19 22:33 Creatinine 0.65 mg/dL (0.52-1.25) 07/06/19 22:33 Est GFR ( Amer) > 60 (>60) 07/06/19 22:33 Est GFR (MDRD) Non-Af > 60 (>60) 07/06/19 22:33 Glucose 188 mg/dL (75-110) H 07/06/19 22:33 Calcium 8.8 mg/dL (8.4-10.2) 07/06/19 22:33 Total Bilirubin 0.3 mg/dL (0.2-1.3) 07/06/19 22:33 Direct Bilirubin 0.1 mg/dL (0.0-0.4) 07/06/19 22:33 Neonat Total Bilirubin Not Reportable 07/06/19 22:33 Neonat Direct Bilirubin Not Reportable 07/06/19 22:33 Neonat Indirect Bili Not Reportable 07/06/19 22:33 AST 24 U/L (17-59) 07/06/19 22:33 ALT 22 U/L (<50) 07/06/19 22:33 Alkaline Phosphatase 74 U/L (38-126) 07/06/19 22:33 Total Protein 5.9 g/dL (6.3-8.2) L 07/06/19 22:33 Albumin 3.4 g/dL (3.5-5.0) L 07/06/19 22:33 Urine Color YELLOW 07/07/19 03:25 Urine Appearance SLIGHTLY-CLOUDY 07/07/19 03:25 Urine pH 6.0 (5.0-9.0) 07/07/19 03:25 Ur Specific [place] 1.020 07/07/19 03:25 Urine Protein NEGATIVE mg/dL (NEGATIVE) 07/07/19 03:25 Urine Glucose (UA) NEGATIVE mg/dL (NEGATIVE) 07/07/19 03:25 Urine Ketones NEGATIVE mg/dL (NEGATIVE) 07/07/19 03:25 Urine Blood NEGATIVE (NEGATIVE) 07/07/19 03:25 Urine Nitrite NEGATIVE (NEGATIVE) 07/07/19 03:25 Urine Bilirubin NEGATIVE (NEGATIVE) 07/07/19 03:25 Urine Urobilinogen NEGATIVE mg/dL (<2.0) 07/07/19 03:25 Ur Leukocyte Esterase NEGATIVE (NEGATIVE) 07/07/19 03:25 Urine WBC (Auto) 5 /HPF 07/07/19 03:25 Urine RBC (Auto) 6 /HPF 07/07/19 03:25 Urine Mucus (Auto) MANY /LPF 07/07/19 03:25 Urine Ascorbic Acid 40 (NEGATIVE) H 07/07/19 03:25 Stl C. Difficile GDH Ag Cancelled 07/07/19 07:30 Stl C.difficile Tox A&B Cancelled 07/07/19 07:30 Impressions: Chest X-Ray 07/06/19 00:00 IMPRESSION: NO ACUTE FINDINGS. Stroke Is this a Stroke Patient?: No Acute Heart Failure - Is this a Heart Failure Patient?: No
[2019-07-09 07:06] LABS: DEAMIDATED GLIADIN IGA AB 6 units (0-19); DEAMIDATED GLIADIN IGG AB 3 units (0-19); T-TRANSGLUTAMINASE (TTG) IGA <2 U/mL (0-3); T-TRANSGLUTAMINASE (TTG) IGG <2 U/mL (0-5)
== END 2019-07-07 18:29 | disposition home or self-care (01) ==
LOC: INTOOBSV 18:00 → 3S 18:00
PROVIDERS: ADMIT Internal Medicine; ATTEND Internal Medicine
DX: K52.9 Noninfective gastroenteritis and colitis, unspecified (principal); L30.9 Dermatitis, unspecified; R06.02 Shortness of breath; M79.7 Fibromyalgia; J45.40 Moderate persistent asthma, uncomplicated; E78.1 Pure hyperglyceridemia; Z79.899 Other long term (current) drug therapy; Z88.6 Allergy status to analgesic agent; Z87.2 Personal history of diseases of the skin and subcutaneous tissue; Z87.19 Personal history of other diseases of the digestive system
CPT/HCPCS: 36415; 87040; 87045; 87086; 87205; 87209; 82803; 87177; 85027; 80076; 80048; 81001; 83520 ×5; 71046; 36600; G0378 ×2; G0379; J3490 ×4; J7030 ×2

== ENCOUNTER → 2019-08-03 | Outpatient (CLI) | payer OTHER ==
[2019-08-03 14:26] LABS: ABSOLUTE LYMPHOCYTES (AUTO) 1.8 10^3/uL (0.5-4.7); ABSOLUTE MONOCYTES (AUTO) 0.7 10^3/uL (0.1-1.4); ABSOLUTE NEUT (AUTO) 4.7 10^3/uL (1.7-8.2); BASOPHILS % (AUTO) 0.6 % (0-2); EOSINOPHILS % (AUTO) 0.5 % (0-6); HEMATOCRIT 41.7 % (37.9-51.0); HEMOGLOBIN 14.7 g/dL (13.5-17.0); LYMPHOCYTES % (AUTO) 24.6 % (13-45); MEAN CORPUSCULAR HEMOGLOBIN 29.5 pg (27.0-33.4); MEAN CORPUSCULAR HGB CONC 35.2 g/dL (32.0-36.0); MEAN CORPUSCULAR VOLUME 84 fl (80-97); MONOCYTES % (AUTO) 9.7 % (3-13); PLATELET COUNT 265 10^3/uL (150-450); RED BLOOD COUNT 4.97 10^6/uL (4.35-5.55); SEGMENTED NEUTROPHILS % (AUTO) 64.6 % (42-78); TOTAL CELLS COUNTED % (AUTO) 100 %; WHITE BLOOD COUNT 7.3 10^3/uL (4.0-10.5)
[2019-08-03 14:35] LABS: APPEARANCE,URINE SLIGHTLY-CLOUDY; BILIRUBIN,URINE NEGATIVE (NEGATIVE); COLOR,URINE YELLOW; GLUCOSE, URINE NEGATIVE (NEGATIVE); KETONES,URINE NEGATIVE (NEGATIVE); LEUKOCYTE ESTERASE,URINE NEGATIVE (NEGATIVE); NITRITE,URINE NEGATIVE (NEGATIVE); PROTEIN,URINE 30 mg/dL (NEGATIVE); URINE SPECIFIC GRAVITY 1.031; UROBILINOGEN,URINE NEGATIVE mg/dL (<2.0)
[2019-08-03 14:48] LABS: ALBUMIN 4.8 g/dL (3.5-5.0); ALKALINE PHOSPHATASE 61 U/L (38-126); ANION GAP 13 (5-19); ASPARTATE AMINO TRANSFERASE 23 U/L (17-59); BILIRUBIN,DIRECT 0.2 mg/dL (0.0-0.4); BILIRUBIN,TOTAL 0.5 mg/dL (0.2-1.3); BLOOD UREA NITROGEN 22 mg/dL (7-20); CARBON DIOXIDE 27 mmol/L (22-30); CHLORIDE 102 mmol/L (98-107); GLUCOSE 154 mg/dL (75-110); POTASSIUM 3.9 mmol/L (3.6-5.0); TOTAL PROTEIN 8.2 g/dL (6.3-8.2)
== END ==
LOC: OD 13:20
PROVIDERS: ATTEND Internal Medicine
DX: R21 Rash and other nonspecific skin eruption (principal)
CPT/HCPCS: 36415; 80053; 81001; 82784; 82785; 85025; 86003

== ENCOUNTER → 2020-01-25 | Outpatient (CLI) | payer OTHER ==
[2020-01-25 16:02] LABS: ABSOLUTE BASOPHILS # (AUTO) 0.1 10^3/uL (0.0-0.2); ABSOLUTE EOSINOPHILS # (AUTO) 0.3 10^3/uL (0.0-0.6); ABSOLUTE LYMPHOCYTES (AUTO) 2.9 10^3/uL (0.5-4.7); ABSOLUTE MONOCYTES (AUTO) 0.7 10^3/uL (0.1-1.4); ABSOLUTE NEUT (AUTO) 3.1 10^3/uL (1.7-8.2); EOSINOPHILS % (AUTO) 3.8 % (0-6); HEMATOCRIT 43.1 % (37.9-51.0); HEMOGLOBIN 15.3 g/dL (13.5-17.0); LYMPHOCYTES % (AUTO) 40.6 % (13-45); MEAN CORPUSCULAR HEMOGLOBIN 30.5 pg (27.0-33.4); MEAN CORPUSCULAR HGB CONC 35.5 g/dL (32.0-36.0); MEAN CORPUSCULAR VOLUME 86 fl (80-97); PLATELET COUNT 226 10^3/uL (150-450); RED BLOOD COUNT 5.01 10^6/uL (4.35-5.55); RED CELL DISTRIBUTION WIDTH 12.4 % (11.5-14.0); SEGMENTED NEUTROPHILS % (AUTO) 44.6 % (42-78); TOTAL CELLS COUNTED % (AUTO) 100 %
[2020-01-25 16:22] LABS: ALBUMIN 5.1 g/dL (3.5-5.0); ALKALINE PHOSPHATASE 68 U/L (38-126); ANION GAP 9 (5-19); ASPARTATE AMINO TRANSFERASE 40 U/L (17-59); BILIRUBIN,TOTAL 0.5 mg/dL (0.2-1.3); BLOOD UREA NITROGEN 19 mg/dL (7-20); CALCIUM 9.7 mg/dL (8.4-10.2); CARBON DIOXIDE 27 mmol/L (22-30); CHLORIDE 103 mmol/L (98-107); GLUCOSE 112 mg/dL (75-110); POTASSIUM 3.9 mmol/L (3.6-5.0); TOTAL PROTEIN 8.1 g/dL (6.3-8.2)
== END ==
LOC: OD 14:56
PROVIDERS: ATTEND Internal Medicine
DX: D72.829 Elevated white blood cell count, unspecified (principal); I10 Essential (primary) hypertension
CPT/HCPCS: 36415; 80053; 83020; 85025; 88184; 88185

== ENCOUNTER → 2020-04-27 | Outpatient (CLI) | payer OTHER ==
--- NOTE | 2020-04-27 14:09 | RADIOLOGY REPORT (SQ) ---
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 TECHNIQUE: CT scanogram of the bilateral lower extremities is performed including pelvis to ankles. Measurements of femur, tibia, and entire lower extremities performed by the radiologist and saved to PACS. All CT scanners at this facility use dose modulation, iterative reconstruction, and/or weight based d osing when appropriate to reduce radiation dose to as low as reasonably achievable (ALARA). [facility]: Dose Right [facility]: CareDose [facility]: Dose Right [facility]: Teradose 4D [facility]: [employer] RADIATION DOSE: mGy. LIMITATIONS: None. FINDINGS: RIGHT: FEMUR: 47.4 cm. TIBIA: 39.3 cm. TOTAL RIGHT LOWER EXTREMITY LENGTH (INCLUDES THE KNEE JOINT SPACE): 86.2 cm. LEFT: FEMUR: 48.1 cm. TIBIA: 39.3 cm. TOTAL LEFT LOWER EXTREMITY LENGTH (INCLUDES THE KNEE JOINT SPACE): 85.9 cm. IMPRESSION: LEG LENGTH MEASUREMENTS DETAILED ABOVE. TECHNICAL DOCUMENTATION: JOB ID: [id number] Quality ID # [id number]: Final reports with documentation of one or more dose reduction techniques (e.g., Au tomated exposure control, adjustment of the mA and/or kV according to patient size, use of iterative reconstruction technique) 2010 [employer]- All Rights Reserved Reading location - IP/workstation name: [email or web address]
== END ==
LOC: RAD 13:20
PROVIDERS: ATTEND Podiatrist Foot & Ankle Surgery
DX: Q72.819 Congenital shortening of unspecified lower limb (principal)
CPT/HCPCS: 77073

== ENCOUNTER → 2020-04-28 | Outpatient (CLI) | payer OTHER ==
[2020-04-28 15:57] LABS: HEMATOCRIT 41.8 % (37.9-51.0); HEMOGLOBIN 15.2 g/dL (13.5-17.0); MEAN CORPUSCULAR HEMOGLOBIN 31.2 pg (27.0-33.4); MEAN CORPUSCULAR HGB CONC 36.3 g/dL (32.0-36.0); MEAN CORPUSCULAR VOLUME 86 fl (80-97); PLATELET COUNT 226 10^3/uL (150-450); RED BLOOD COUNT 4.87 10^6/uL (4.35-5.55); RED CELL DISTRIBUTION WIDTH 12.6 % (11.5-14.0); WHITE BLOOD COUNT 6.4 10^3/uL (4.0-10.5)
[2020-04-28 16:00] LABS: ALBUMIN 4.8 g/dL (3.5-5.0); ALKALINE PHOSPHATASE 77 U/L (38-126); ANION GAP 9 (5-19); ASPARTATE AMINO TRANSFERASE 37 U/L (17-59); BILIRUBIN,DIRECT 0.2 mg/dL (0.0-0.4); BILIRUBIN,TOTAL 0.6 mg/dL (0.2-1.3); BLOOD UREA NITROGEN 16 mg/dL (7-20); CALCIUM 9.6 mg/dL (8.4-10.2); CARBON DIOXIDE 29 mmol/L (22-30); CHLORIDE 101 mmol/L (98-107); GLUCOSE 139 mg/dL (75-110); POTASSIUM 3.6 mmol/L (3.6-5.0); TOTAL PROTEIN 7.4 g/dL (6.3-8.2)
[2020-04-28 16:18] LABS: FREE T4 (FREE THYROXINE) 0.85 ng/dL (0.78-2.19)
[2020-04-28 16:31] LABS: THYROID STIMULATING HORMONE 2.26 uIU/mL (0.47-4.68)
== END ==
LOC: OD 14:51
PROVIDERS: ATTEND Nurse Practitioner Family
DX: G62.9 Polyneuropathy, unspecified (principal); R53.1 Weakness
CPT/HCPCS: 36415; 80053; 82607; 82728; 83036; 84439; 84443; 84479; 85027; 86038

== ENCOUNTER 2020-05-30 19:23 | Observation (INO) | payer OTHER ==
--- NOTE | 2020-05-30 19:40 | ER Document Report ---
ED Medical Screen (RME) - General Chief Complaint: Breathing Difficulty Stated Complaint: DIFFICULTY BREATHING Time Seen by Provider: 05/30/20 19:39 Primary Care Provider: ROSALES ANGULO NP-C [Primary Care Provider] - Follow up as needed Mode of Arrival: Wheelchair Information source: Patient Notes: 55-year-old male presented in ED for complaint of right-sided chest and back pain with a bulge to the right back. He states he is extremely short of breath. He cannot get a breath. He is alert and oriented he is able to speak in full sentences but states he is extremely short of breath. He states he is lightheaded from being short of breath. Patient states he has a history of asthma and is on albuterol and Symbicort neither of one is helping. 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 The patient was evaluated during the global Covid 19 pandemic, and that diagnosis was suspected/considered upon their initial presentation. Their evaluation, treatment and testing was consistent with current guidelines for patients who present with complaints or symptoms that may be related to Covid 19. I have greeted and performed a rapid initial assessment of this patient. A comprehensive ED assessment and evaluation of the patient, analysis of test results and completion of medical decision making process will be conducted by an additional ED providers. TRAVEL OUTSIDE OF THE [place] IN LAST 30 DAYS: No - Related Data Allergies/Adverse Reactions: hydromorphone HCl [From Dilaudid] Adverse Reaction (Verified 07/30/17 09:41) VOMITING Past Medical History - Past Medical History Cardiac Medical History: Denies: Hx Coronary Artery Disease, Hx Heart Attack, Hx Hypertension Pulmonary Medical History: Reports: Hx Asthma - USES INHALERS Denies: Hx Bronchitis, Hx COPD, Hx Pneumonia Neurological Medical History: Denies: Hx Cerebrovascular Accident, Hx Seizures Renal/ Medical History: Denies: Hx Peritoneal Dialysis Musculoskeltal Medical History: Denies Hx Arthritis, Reports Hx Fibromyalgia Psychiatric Medical History: Reports: Hx Depression - Immunizations Immunizations up to date: Yes Hx Diphtheria, Pertussis, Tetanus Vaccination: Yes Physical Exam - Vital signs Vitals: Temp Pulse Resp BP Pulse Ox 98.9 F 77 20 135/83 H 97 05/30/20 19:47 05/30/20 19:47 05/30/20 19:47 05/30/20 19:47 05/30/20 19:47 Course - Vital Signs Vital signs: Temp Pulse Resp BP Pulse Ox 98.9 F 77 20 135/83 H 97 05/30/20 19:47 05/30/20 19:47 05/30/20 19:47 05/30/20 19:47 05/30/20 19:47 Doctor's Discharge - Discharge Referrals: ROSALES ANGULO, FREIGHT AGENT-C [Primary Care Provider] - Follow up as needed
--- NOTE | 2020-05-30 19:46 | EKG REPORT ---
SEVERITY:- NORMAL ECG - SINUS RHYTHM : Confirmed by: Oliver Granados MD 30-May-2020 19:46:20
--- NOTE | 2020-05-30 20:19 | RADIOLOGY REPORT (SQ) ---
EXAM DESCRIPTION: XR CHEST 1 VIEW COMPLETED DATE/TME: 05/30/2020 19:39 CLINICAL HISTORY: 55 years, Male, difficulty breathing COMPARISON: Chest x-ray 07/06/2019. TECHNIQUE: Upright portable chest x-ray FINDINGS: Cardiomediastinal silhouette is not enlarged. No suspicious acute lung pleural bone abnormalities. IMPRESSION: No acute findings in chest.
[2020-05-30 20:24] LABS: ABSOLUTE BASOPHILS # (AUTO) 0.1 10^3/uL (0.0-0.2); ABSOLUTE EOSINOPHILS # (AUTO) 0.2 10^3/uL (0.0-0.6); ABSOLUTE LYMPHOCYTES (AUTO) 3.3 10^3/uL (0.5-4.7); ABSOLUTE MONOCYTES (AUTO) 0.7 10^3/uL (0.1-1.4); ABSOLUTE NEUT (AUTO) 3.2 10^3/uL (1.7-8.2); EOSINOPHILS % (AUTO) 2.2 % (0-6); HEMATOCRIT 41.2 % (37.9-51.0); HEMOGLOBIN 14.9 g/dL (13.5-17.0); MEAN CORPUSCULAR HEMOGLOBIN 30.7 pg (27.0-33.4); MEAN CORPUSCULAR HGB CONC 36.2 g/dL (32.0-36.0); MEAN CORPUSCULAR VOLUME 85 fl (80-97); MONOCYTES % (AUTO) 9.7 % (3-13); PLATELET COUNT 224 10^3/uL (150-450); RED BLOOD COUNT 4.85 10^6/uL (4.35-5.55); RED CELL DISTRIBUTION WIDTH 12.2 % (11.5-14.0); SEGMENTED NEUTROPHILS % (AUTO) 43.1 % (42-78); TOTAL CELLS COUNTED % (AUTO) 100 %; WHITE BLOOD COUNT 7.4 10^3/uL (4.0-10.5)
[2020-05-30] MEDS ORDERED: NORMAL SALINE 1000 ML 1,000 ML IV ONE (20:45)
[2020-05-30] MEDS ORDERED: KETOROLAC TROMETHAMINE INJ/PF 30 MG/1 ML SDV IV ONE (20:45)
[2020-05-30] MEDS ORDERED: DEXAMETHASONE SOD PHOS INJ 10 MG/1 ML VIAL IV ONE (20:45)
[2020-05-30 20:49] LABS: ALBUMIN 4.6 g/dL (3.5-5.0); ALKALINE PHOSPHATASE 69 U/L (38-126); ANION GAP 9 (5-19); ASPARTATE AMINO TRANSFERASE 35 U/L (17-59); BILIRUBIN,DIRECT 0.1 mg/dL (0.0-0.4); BILIRUBIN,TOTAL 0.4 mg/dL (0.2-1.3); BLOOD UREA NITROGEN 17 mg/dL (7-20); CARBON DIOXIDE 27 mmol/L (22-30); CHLORIDE 102 mmol/L (98-107); GLUCOSE 112 mg/dL (75-110); TOTAL PROTEIN 7.3 g/dL (6.3-8.2)
--- NOTE | 2020-05-30 21:01 | ER Document Report ---
ED General - General Chief Complaint: Shortness Of Breath Stated Complaint: DIFFICULTY BREATHING Time Seen by Provider: 05/30/20 19:39 Mode of Arrival: Wheelchair Notes: 55-year-old male history of hypertension hyperlipidemia intermittent asthma presents with 2 days left-sided chest pain intermittent aggravated by exertion without radiation associated with shortness of breath and dry cough. Patient also complains of generalized malaise and myalgia. Also says he has bump on right lower chest for the past day. Patient also complaining of shortness of breath that is temporarily relieved by using his albuterol inhaler but then returns. Patient denies having previous cardiac history, had stress test approximately 6 months ago which she says was negative. Patient denies any lower extremity edema/pain, hypercoagulability history in self or family, cancer history, hemoptysis, recent travel/trauma/surgery/immobilization, fever. 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 TRAVEL OUTSIDE OF THE [place] IN LAST 30 DAYS: No - Related Data Allergies/Adverse Reactions: hydromorphone HCl [From Dilaudid] Adverse Reaction (Verified 07/30/17 09:41) VOMITING Past Medical History - General Information source: Patient, [facility] Records - Social History Smoking Status: Never Smoker Chew tobacco use (# tins/day): No Frequency of alcohol use: None Drug Abuse: None Family History: Reviewed & Not Pertinent - Past Medical History Cardiac Medical History: Denies: Hx Coronary Artery Disease, Hx Heart Attack, Hx Hypertension Pulmonary Medical History: Reports: Hx Asthma - USES INHALERS Denies: Hx Bronchitis, Hx COPD, Hx Pneumonia Neurological Medical History: Denies: Hx Cerebrovascular Accident, Hx Seizures Renal/ Medical History: Denies: Hx Peritoneal Dialysis Musculoskeletal Medical History: Denies Hx Arthritis, Reports Hx Fibromyalgia Psychiatric Medical History: Reports: Hx Depression - Immunizations Immunizations up to date: Yes Hx Diphtheria, Pertussis, Tetanus Vaccination: Yes Hx Pneumococcal Vaccination: 01/26/11 Review of Systems - Review of Systems Notes: REVIEW OF SYSTEMS: CONSTITUTIONAL : Denies fever, chills, or sweats. EENT: Denies recent sinus symptoms, denies throat pain CARDIOVASCULAR: + chest pain, -AUTUMN RESPIRATORY: + cough, + shortness of breath. GASTROINTESTINAL: + abdominal pain, -nausea/vomiting. GENITOURINARY: Denies difficulty urinating, painful urination. MUSCULOSKELETAL: Denies neck pain, back pain. SKIN: Denies rash +skin lesions. HEMATOLOGIC : Denies easy bruising or bleeding. LYMPHATIC: Denies swollen, enlarged glands. NEUROLOGICAL: Denies headache, denies change in gait. PSYCHIATRIC: Denies anxiety or stress or depression. Physical Exam - Vital signs Vitals: Resp BP 19 114/81 05/30/20 19:43 05/30/20 19:43 - Notes Notes: PHYSICAL EXAMINATION: GENERAL: Mildly uncomfortable appearing middle-aged man appearing stated age with no signs of acute distress HEAD: Atraumatic, normocephalic. EYES: Pupils equal round and appropriate constriction, sclera anicteric, conjunctiva are normal. ENT: nares patent, moist mucous membranes. NECK: Normal range of motion, supple without lymphadenopathy LUNGS: Normal respiratory rate and effort, good air movement, prolonged expiratory phase, no accessory muscle use, speaking in full sentences, no drooling or tripoding HEART/CHEST: Regular rate and rhythm without murmurs, approximately 2 x 4 cm mildly tender soft skin swelling area on anterior lower ribs without any overlying skin abnormalities, no erythema, no fluctuance ABDOMEN: Soft, mild epigastric tenderness, no rebound, no guarding, no masses EXTREMITIES: Normal range of motion, no pitting or edema. No cyanosis. NEUROLOGICAL: Awake, alert, conversing appropriately, moves all extremities spontaneously. PSYCH: Normal mood, normal affect. SKIN: Warm, Dry, normal turgor, no rashes or lesions noted. Course - Re-evaluation Re-evalutation: 05/31/20 00:01 Chest pain or shortness of breath, patient low risk for PE, able to rule out with D-dimer given low Wells score, rule out ACS, pneumonia, COVID-19, pancreatitis, rhabdomyolysis, electrolyte abnormalities. Patient with minor soft tissue mass that will require follow-up with dermatology, likely lipoma rule out dangerous underlying pathology, does not appear to be related to current symptoms. No respiratory distress in the ED, no signs of impending respiratory failure, will treat for asthma exacerbation pending results of work- up. Given that initial EKG and troponin were negative I have turned patient over to Dr. Ojebuoboh for ACS rule out and observation. D-dimer negative, no acute findings on chest x-ray. The patient was evaluated during the global COVID-19 pandemic and that diagnosis was suspected/considered upon their initial presentation. Their evaluation, treatment and testing was consistent with current guidelines for patients who present with complaints or symptoms that may be related to COVID-19. 05/31/20 01:48 Patient complaining of worsening of chronic right hip pain radiating to leg for past few days now worse after lying in hospital stretcher for several hours. Patient without any midline back pain, trauma, weakness or numbness, straight leg raise and bilateral lower extremity strength and sensation normal, normal distal perfusion, normal inspection, likely sciatic pain without any signs of cord compression, cauda equina, conus medullaris syndrome epidural hematoma or abscess. Patient allergic to Dilaudid but says that he has taken codeine in the past without any issue. Will order Tylenol 3. - Vital Signs Vital signs: Temp Pulse Resp BP Pulse Ox 98.9 F 77 16 124/93 H 94 05/30/20 19:47 05/30/20 19:47 05/31/20 04:00 05/31/20 04:00 05/31/20 04:00 - Laboratory Result Diagrams: 05/30/20 20:00 05/31/20 03:00 Laboratory results interpreted by me: 05/30/20 05/30/20 20:00 20:00 MCHC 36.2 H Glucose 112 H - EKG Interpretation by Me Additional EKG results interpreted by me: 05/31/20 04:47 Sinus rhythm, no significant ST elevations or depressions, no significant T wave abnormalities, QTc 465 Discharge - Discharge Clinical Impression: Viral syndrome, Soft tissue mass Chest pain Qualifiers: Chest pain type: unspecified Qualified Code(s): R07.9 - Chest pain, unspecified Disposition: ADMITTED OBSERVATION Admitting Provider: [facility] Unit Admitted: Telemetry
[2020-05-30] MEDS ORDERED: DEXAMETHASONE 4 MG TABLET PO ONE (21:51)
[2020-05-30] MEDS ORDERED: ASPIRIN 81 MG TABLET, CHEWABLE PO ONE (23:11)
[2020-05-30] MEDS ORDERED: NITROGLYCERIN 0.4 MG/TAB 25 TAB/BOTTLE SL ONE (23:14)
[2020-05-30] MEDS ORDERED: ASPIRIN 81 MG TABLET, CHEWABLE ONE (23:48)
[2020-05-31 00:12] LABS: A TYPE INFLUENZA AG NEGATIVE (NEGATIVE); B INFLUENZA AG POSITIVE (NEGATIVE)
[2020-05-31] MEDS ORDERED: ACETAMINOPHEN WITH CODEINE #3 TABLET PO ONE (01:50)
[2020-05-31 02:27] LABS: APPEARANCE,URINE CLEAR; BILIRUBIN,URINE NEGATIVE (NEGATIVE); COLOR,URINE YELLOW; GLUCOSE, URINE NEGATIVE (NEGATIVE); KETONES,URINE NEGATIVE (NEGATIVE); LEUKOCYTE ESTERASE,URINE NEGATIVE (NEGATIVE); NITRITE,URINE NEGATIVE (NEGATIVE); PROTEIN,URINE NEGATIVE (NEGATIVE); URINE SPECIFIC GRAVITY 1.026; UROBILINOGEN,URINE NEGATIVE mg/dL (<2.0)
[2020-05-31 03:15] LABS: ARTERIAL BLOOD BASE EXCESS -0.9 mmol/L; ARTERIAL BLOOD HCO3 23.8 mmol/L (20-24); ARTERIAL BLOOD O2 SATURATION 96.7 % (94-98); ARTERIAL BLOOD PH 7.39 (7.35-7.45); ARTERIAL BLOOD PO2 88.7 mmHg (80-100); ARTERIAL BLOOD TOTAL CO2 25.1 mmol/L (23-27)
[2020-05-31 03:16] LABS: ARTERIAL BLOOD FIO2 ROOM AIR
[2020-05-31] MEDS: OSELTAMIVIR PHOSPHATE 75 MG CAPSULE PO SCH ×3 (03:16→21:01)
[2020-05-31] MEDS: ENOXAPARIN SODIUM INJ 40 MG/0.4 ML DISP.SYRIN SUBCUT SCH ×2 (03:16→10:44)
[2020-05-31 03:35] LABS: FIBRINOGEN 233 mg/dL (209-497); INTERNATIONAL RATION (INR) 1.03; PARTIAL THROMBOPLASTIN TIME 32.9 SEC (23.5-35.8); PROTHROMBIN TIME 13.7 SEC (11.4-15.4)
[2020-05-31 03:45] LABS: ALBUMIN 4.6 g/dL (3.5-5.0); ALKALINE PHOSPHATASE 70 U/L (38-126); ANION GAP 11 (5-19); ASPARTATE AMINO TRANSFERASE 36 U/L (17-59); BILIRUBIN,DIRECT 0.1 mg/dL (0.0-0.4); BILIRUBIN,TOTAL 0.6 mg/dL (0.2-1.3); BLOOD UREA NITROGEN 18 mg/dL (7-20); CALCIUM 9.7 mg/dL (8.4-10.2); CARBON DIOXIDE 25 mmol/L (22-30); CHLORIDE 103 mmol/L (98-107); CREATINE KINASE 133 U/L (55-170); GLUCOSE 180 mg/dL (75-110); POTASSIUM 4.5 mmol/L (3.6-5.0); TOTAL PROTEIN 7.1 g/dL (6.3-8.2)
[2020-05-31 04:12] LABS: C-REACTIVE PROTEIN < 5.0 mg/L (<10.0)
[2020-05-31] MEDS: NORMAL SALINE 1000 ML 1,000 ML IV PRN ×2 (08:30→22:32)
[2020-05-31] MEDS: ZINC SULFATE 220 MG CAPSULE PO SCH (10:44)
[2020-05-31] MEDS: CHOLECALCIFEROL (D3) 1,000 UNIT (25 MCG) TABLET PO SCH (10:44)
[2020-05-31] MEDS: DEXAMETHASONE SOD PHOS INJ 10 MG/1 ML VIAL IV SCH (10:44)
--- NOTE | 2020-05-31 16:36 | EKG REPORT ---
SEVERITY:- ABNORMAL ECG - SINUS RHYTHM NONSPECIFIC INTRAVENTRICULAR CONDUCTION DELAY : Confirmed by: Oliver Granados MD 31-May-2020 16:35:47
[2020-05-31] MEDS ORDERED: (PENDING PHARMACY ID) (Levalbuterol Tartrate [Xopenex Hfa] 2 PUFF) IH PRN (21:34)
[2020-05-31] MEDS ORDERED: ALBUTEROL SULFATE HFA (90 MCG/PUFF) 8 GM MDI IH PRN (21:44)
[2020-05-31] MEDS ORDERED: MONTELUKAST SODIUM 10 MG TABLET PO SCH (22:00)
[2020-05-31] MEDS ORDERED: CETIRIZINE 10 MG TABLET PO SCH (22:00)
[2020-05-31] MEDS ORDERED: SIMVASTATIN 40 MG TABLET PO SCH (22:00)
[2020-05-31] MEDS ORDERED: TRAZODONE HCL 50 MG TABLET PO SCH (22:00)
[2020-05-31] MEDS: KETOROLAC TROMETHAMINE INJ/PF 30 MG/1 ML SDV IV PRN (22:28)
[2020-05-31] MEDS: PREGABALIN 75 MG CAPSULE PO SCH (23:05)
--- NOTE | 2020-05-31 23:28 | PDOC H&P ---
History of Present Illness Admission Date/PCP: 05/31/20 00:09 LEISA WADEC History of Present Illness: TREVOR SANDOVAL is a 55 year old male, He came to the emergency room for evaluat ion of multiple complaints including shortness of breath, chest pain, generalized malaise, myalgia, there is a concern for Covid in the emergency room, the nasal swab was positive for influenza type B, Covid test is pending Past Medical History Pulmonary Medical History: Reports: Asthma - USES INHALERS Neurological Medical History: Denies: Seizures Musculoskeltal Medical History: Reports: Fibromyalgia Denies: Arthritis Psychiatric Medical History: Reports: Depression Social History Smoking Status: Never Smoker Electronic Cigarette use?: No Frequency of Alcohol Use: None Hx Recreational Drug Use: No Drugs: None Hx Prescription Drug Abuse: No Family History Family History: Reviewed & Not Pertinent Parental Family History Reviewed: Yes Children Family History Reviewed: Yes Sibling(s) Family History Reviewed.: Yes Medication/Allergy Home Medications: Budesonide/Formoterol Fumarate [Symbicort HFA 160-4.5 mcg Inhaler 6 gm] 2 puff IH QPM 07/07/19 Cetirizine HCl [Zyrtec 10 mg Tablet] 10 mg PO QPM 07/07/19 Cholecalciferol (Vitamin D3) [Vitamin D3] 10,000 unit PO QPM 07/07/19 Fluticasone Propionate [Flonase Nasal [place] 50 Mcg/[place] 16 gm] 2 sprays NASL QPM 07/07/19 Losartan Potassium [Cozaar 25 mg Tablet] 25 mg PO QPM 07/07/19 Montelukast Sodium [Singulair 10 mg Tablet] 10 mg PO QPM 07/07/19 Simvastatin [Zocor 20 mg Tablet] 20 mg PO QPM 07/07/19 Trazodone HCl [Desyrel 50 mg Tablet] 75 mg PO QPM 07/07/19 Fluoxetine HCl [Prozac 20 mg Capsule] 20 mg PO QPM 05/31/20 Hydroxyzine HCl [Atarax 10 mg Tablet] 10 mg PO QPM 05/31/20 Levalbuterol Tartrate [Xopenex Hfa] 2 puff IH DAILYP PRN 05/31/20 Multivitamin with Minerals [Hair, Skin and Nails] 1 tab PO QPM 05/31/20 Omeprazole 40 mg PO QAM 05/31/20 Pregabalin [Lyrica 75 mg Capsule] 75 mg PO Q12 05/31/20 Ketorolac Tromethamine [Toradol 10 mg Tablet] 10 mg PO Q6HP PRN #20 tablet 06/01 Oseltamivir Phosphate [Tamiflu 75 mg Capsule] 75 mg PO Q12 #14 capsule 06/01/20 Allergies/Adverse Reactions: hydromorphone HCl [From Dilaudid] Adverse Reaction (Verified 07/30/17 09:41) VOMITING Review of Systems Constitutional: PRESENT: fever(s) Eyes: ABSENT: visual disturbances Ears: ABSENT: hearing changes Cardiovascular: PRESENT: chest pain Respiratory: PRESENT: cough Gastrointestinal: ABSENT: abdominal pain, constipation, diarrhea, hematemesis, hematochezia, nausea, vomiting Genitourinary: ABSENT: dysuria, hematuria Musculoskeletal: ABSENT: joint swelling Integumentary: ABSENT: rash, wounds Neurological: ABSENT: abnormal gait, abnormal speech, confusion, dizziness, focal weakness, syncope Psychiatric: ABSENT: anxiety, depression, homidical ideation, suicidal ideation Endocrine: ABSENT: cold intolerance, heat intolerance, menstrual abnormalities, polydipsia, polyuria Hematologic/Lymphatic: ABSENT: easy bleeding, easy bruising, lymphadenopathy Physical Exam Vital Signs: Temp Pulse Resp BP Pulse Ox 98.8 F 89 18 116/71 96 05/31/20 19:26 05/31/20 19:26 05/31/20 19:26 05/31/20 19:26 05/31/20 19:26 Intake & Output 05/30/20 05/31/20 06/01/20 06:59 06:59 06:59 Intake Total 1000 1203 Balance 1000 1203 Weight 92.5 kg General appearance: PRESENT: no acute distress, well-developed, well-nourished Head exam: PRESENT: atraumatic, normocephalic Eye exam: PRESENT: conjunctiva pink, EOMI, PERRLA Ear exam: PRESENT: normal external ear exam Mouth exam: PRESENT: moist, tongue midline Neck exam: PRESENT: full ROM Respiratory exam: PRESENT: clear to auscultation kathy Cardiovascular exam: PRESENT: RRR Pulses: PRESENT: normal dorsalis pedis pul, +2 pedal pulses bilateral Vascular exam: PRESENT: normal capillary refill GI/Abdominal exam: PRESENT: normal bowel sounds, soft Rectal exam: PRESENT: deferred Neurological exam: PRESENT: alert, awake, oriented to person, oriented to place, oriented to time, oriented to situation, CN II-XII grossly intact Psychiatric exam: PRESENT: appropriate affect, normal mood Skin exam: PRESENT: dry, intact, warm Results Laboratory Results: 05/30/20 20:00 05/31/20 03:00 05/31/20 05/31/20 05/31/20 02:05 03:00 03:00 Carbonic Acid 1.20 HCO3/H2CO3 Ratio 19:1 ABG pH 7.39 ABG pCO2 40.0 ABG pO2 88.7 ABG HCO3 23.8 ABG O2 Saturation 96.7 ABG Base Excess -0.9 FiO2 ROOM AIR Sodium 139.0 Potassium 4.5 Chloride 103 Carbon Dioxide 25 Anion Gap 11 BUN 18 Creatinine 0.71 Est GFR ( Amer) > 60 Glucose 180 H Calcium 9.7 Ferritin 168.00 Total Bilirubin 0.6 AST 36 Alkaline Phosphatase 70 C-Reactive Protein < 5.0 Total Protein 7.1 Albumin 4.6 Urine Color YELLOW Urine Appearance CLEAR Urine pH 6.0 Ur Specific [place] 1.026 Urine Protein NEGATIVE Urine Glucose (UA) NEGATIVE Urine Ketones NEGATIVE Urine Blood NEGATIVE Urine Nitrite NEGATIVE Ur Leukocyte Esterase NEGATIVE Urine WBC (Auto) 2 Urine RBC (Auto) 1 05/30/20 05/30/20 05/31/20 20:00 20:00 00:55 Creatine Kinase 140 Troponin I < 0.012 < 0.012 05/31/20 03:00 Creatine Kinase 133 Troponin I Impressions: Chest X-Ray 05/30/20 19:39 IMPRESSION: No acute findings in chest. Assessment & Plan - Diagnosis (1) Influenza B Is this a current diagnosis for this admission?: Yes Plan: Patient admitted for management - Time Time Spent: Greater than 70 Minutes Medications reviewed and adjusted accordingly: Yes Anticipated Discharge Disposition: Home, Self Care Anticipated Discharge Timeframe: within 36 hours - Inpatient Certification Based on my medical assessment, after consideration of the patient's comorbidities, presenting symptoms, or acuity I expect that the services needed warrant INPATIENT care.: Yes I certify that my determination is in accordance with my understanding of Medicare's requirements for reasonable and necessary INPATIENT services [42 CFR 412.3e].: Yes
[2020-06-01 02:30] VITALS: BP 126/49
[2020-06-01] MEDS ORDERED: PANTOPRAZOLE SODIUM 40 MG TABLET.DR PO SCH (06:00)
[2020-06-01] MEDS ORDERED: FLUTICASONE/VILANTEROL 200-25 MCG/DOSE IH SCH (10:00)
[2020-06-01] MEDS: ENOXAPARIN SODIUM INJ 40 MG/0.4 ML DISP.SYRIN SUBCUT SCH (10:24)
[2020-06-01] MEDS: ZINC SULFATE 220 MG CAPSULE PO SCH (10:24)
[2020-06-01] MEDS: PREGABALIN 75 MG CAPSULE PO SCH (10:24)
[2020-06-01] MEDS: CHOLECALCIFEROL (D3) 1,000 UNIT (25 MCG) TABLET PO SCH (10:24)
[2020-06-01] MEDS: DEXAMETHASONE SOD PHOS INJ 10 MG/1 ML VIAL IV SCH (10:24)
[2020-06-01] MEDS: OSELTAMIVIR PHOSPHATE 75 MG CAPSULE PO SCH (10:25)
[2020-06-01] MEDS: KETOROLAC TROMETHAMINE INJ/PF 30 MG/1 ML SDV IV PRN (12:45)
[2020-06-01] MEDS: NORMAL SALINE 1000 ML 1,000 ML IV PRN (12:48)
--- NOTE | 2020-06-01 15:11 | PDOC DISCHARGE SUMMARY ---
Impression - Admit/DC Date/PCP Admission Date/Primary Care Provider: 05/31/20 00:09 ASHKAN WADE Discharge Date: 06/01/20 - Discharge Diagnosis (1) Influenza B Is this a current diagnosis for this admission?: Yes - Additional Information Discharge Diet: Regular Discharge Activity: Activity As Tolerated Referrals: FERNY NIÑO MD [ACTIVE STAFF] - 06/13/20 1:45 pm Prescriptions: Ketorolac Tromethamine [Toradol 10 mg Tablet] 10 mg PO Q6HP PRN #20 tablet PRN Reason: RX: Oseltamivir Phosphate [Tamiflu 75 mg Capsule] 75 mg PO Q12 #14 capsule Home Medications: RX: Budesonide/Formoterol Fumarate [Symbicort HFA 160-4.5 mcg Inhaler 6 gm] 2 puff IH QPM 07/07/19 RX: Cetirizine HCl [Zyrtec 10 mg Tablet] 10 mg PO QPM 07/07/19 RX: Cholecalciferol (Vitamin D3) [Vitamin D3] 10,000 unit PO QPM 07/07/19 RX: Fluticasone Propionate [Flonase Nasal [place] 50 Mcg/[place] 16 gm] 2 sprays NASL QPM 07/07/19 RX: Losartan Potassium [Cozaar 25 mg Tablet] 25 mg PO QPM 07/07/19 RX: Montelukast Sodium [Singulair 10 mg Tablet] 10 mg PO QPM 07/07/19 RX: Simvastatin [Zocor 20 mg Tablet] 20 mg PO QPM 07/07/19 RX: Trazodone HCl [Desyrel 50 mg Tablet] 75 mg PO QPM 07/07/19 RX: Fluoxetine HCl [Prozac 20 mg Capsule] 20 mg PO QPM 05/31/20 RX: Hydroxyzine HCl [Atarax 10 mg Tablet] 10 mg PO QPM 05/31/20 RX: Levalbuterol Tartrate [Xopenex Hfa] 2 puff IH DAILYP PRN 05/31/20 RX: Multivitamin with Minerals [Hair, Skin and Nails] 1 tab PO QPM 05/31/20 RX: Omeprazole 40 mg PO QAM 05/31/20 RX: Pregabalin [Lyrica 75 mg Capsule] 75 mg PO Q12 05/31/20 Ketorolac Tromethamine [Toradol 10 mg Tablet] 10 mg PO Q6HP PRN #20 tablet 06/01/20 RX: Oseltamivir Phosphate [Tamiflu 75 mg Capsule] 75 mg PO Q12 #14 capsule 06/01/20 History of Present Illiness History of Present Illness: TREVOR SANDOVAL is a 55 year old male, He came to the emergency room for evaluation of multiple complaints including shortness of breath, chest pain, generalized malaise, myalgia, there is a concern for Covid in the emergency room, the nasal swab was positive for influenza type B, Covid test is negative Hospital Course Hospital Course: Patient was admitted for the management of influenza type B, treated with Tamiflu, he also had IV Toradol for pain control.He also had IV infusion Physical Exam Vital Signs: Temp Pulse Resp BP Pulse Ox 97.5 F 81 18 126/49 H 95 06/01/20 14:38 06/01/20 14:38 06/01/20 14:38 05/31/20 23:14 06/01/20 14:38 Intake & Output 05/31/20 06/01/20 06/02/20 06:59 06:59 06:59 Intake Total 1000 1723 999 Balance 1000 1723 999 Weight 92.5 kg 92.5 kg General appearance: PRESENT: no acute distress Eye exam: PRESENT: PERRLA Respiratory exam: PRESENT: clear to auscultation kathy Cardiovascular exam: PRESENT: +S1, +S2 GI/Abdominal exam: PRESENT: soft Neurological exam: PRESENT: alert Results Laboratory Results: WBC 7.4 10^3/uL (4.0-10.5) 05/30/20 20:00 RBC 4.85 10^6/uL (4.35-5.55) 05/30/20 20:00 Hgb 14.9 g/dL (13.5-17.0) 05/30/20 20:00 Hct 41.2 % (37.9-51.0) 05/30/20 20:00 MCV 85 fl (80-97) 05/30/20 20:00 MCH 30.7 pg (27.0-33.4) 05/30/20 20:00 MCHC 36.2 g/dL (32.0-36.0) H 05/30/20 20:00 RDW 12.2 % (11.5-14.0) 05/30/20 20:00 Plt Count 224 10^3/uL (150-450) 05/30/20 20:00 Lymph % (Auto) 44.0 % (13-45) 05/30/20 20:00 [place] % (Auto) 9.7 % (3-13) 05/30/20 20:00 Eos % (Auto) 2.2 % (0-6) 05/30/20 20:00 Baso % (Auto) 1.0 % (0-2) 05/30/20 20:00 Absolute Neuts (auto) 3.2 10^3/uL (1.7-8.2) 05/30/20 20:00 Absolute Lymphs (auto) 3.3 10^3/uL (0.5-4.7) 05/30/20 20:00 Absolute Monos (auto) 0.7 10^3/uL (0.1-1.4) 05/30/20 20:00 Absolute Eos (auto) 0.2 10^3/uL (0.0-0.6) 05/30/20 20:00 Absolute Basos (auto) 0.1 10^3/uL (0.0-0.2) 05/30/20 20:00 Seg Neutrophils % 43.1 % (42-78) 05/30/20 20:00 PT 13.7 SEC (11.4-15.4) 05/31/20 03:00 INR 1.03 05/31/20 03:00 APTT 32.9 SEC (23.5-35.8) 05/31/20 03:00 Fibrinogen 233 mg/dL (209-497) 05/31/20 03:00 D-Dimer 0.35 ug/mL (0.00-0.50) 05/30/20 20:00 Carbonic Acid 1.20 mmol/L (1.05-1.35) 05/31/20 03:00 HCO3/H2CO3 Ratio 19:1 05/31/20 03:00 ABG pH 7.39 (7.35-7.45) 05/31/20 03:00 ABG pCO2 40.0 mmHg (35-45) 05/31/20 03:00 ABG pO2 88.7 mmHg (80-100) 05/31/20 03:00 ABG HCO3 23.8 mmol/L (20-24) 05/31/20 03:00 ABG Total CO2 25.1 mmol/L (23-27) 05/31/20 03:00 ABG O2 Saturation 96.7 % (94-98) 05/31/20 03:00 ABG Base Excess -0.9 mmol/L 05/31/20 03:00 FiO2 ROOM AIR 05/31/20 03:00 Sodium 139.0 mmol/L (137-145) 05/31/20 03:00 Potassium 4.5 mmol/L (3.6-5.0) 05/31/20 03:00 Chloride 103 mmol/L (98-107) 05/31/20 03:00 Carbon Dioxide 25 mmol/L (22-30) 05/31/20 03:00 Anion Gap 11 (5-19) 05/31/20 03:00 BUN 18 mg/dL (7-20) 05/31/20 03:00 Creatinine 0.71 mg/dL (0.52-1.25) 05/31/20 03:00 Est GFR ( Amer) > 60 (>60) 05/31/20 03:00 Est GFR (MDRD) Non-Af > 60 (>60) 05/31/20 03:00 Glucose 180 mg/dL (75-110) H 05/31/20 03:00 Calcium 9.7 mg/dL (8.4-10.2) 05/31/20 03:00 Magnesium 1.9 mg/dL (1.6-2.3) 05/30/20 20:00 Ferritin 168.00 ng/mL (17.9-464.0) 05/31/20 03:00 Total Bilirubin 0.6 mg/dL (0.2-1.3) 05/31/20 03:00 Direct Bilirubin 0.1 mg/dL (0.0-0.4) 05/31/20 03:00 Neonat Total Bilirubin Not Reportable 05/31/20 03:00 Neonat Direct Bilirubin Not Reportable 05/31/20 03:00 Neonat Indirect Bili Not Reportable 05/31/20 03:00 AST 36 U/L (17-59) 05/31/20 03:00 ALT 51 U/L (<50) H 05/31/20 03:00 Alkaline Phosphatase 70 U/L (38-126) 05/31/20 03:00 Lactate Dehydrogenase 178 U/L (120-246) 05/31/20 03:00 Creatine Kinase 133 U/L (55-170) 05/31/20 03:00 Troponin I < 0.012 ng/mL 05/31/20 00:55 C-Reactive Protein < 5.0 mg/L (<10.0) 05/31/20 03:00 Total Protein 7.1 g/dL (6.3-8.2) 05/31/20 03:00 Albumin 4.6 g/dL (3.5-5.0) 05/31/20 03:00 Lipase 255.5 U/L (23-300) 05/30/20 20:00 Urine Color YELLOW 05/31/20 02:05 Urine Appearance CLEAR 05/31/20 02:05 Urine pH 6.0 (5.0-9.0) 05/31/20 02:05 Ur Specific [place] 1.026 05/31/20 02:05 Urine Protein NEGATIVE mg/dL (NEGATIVE) 05/31/20 02:05 Urine Glucose (UA) NEGATIVE mg/dL (NEGATIVE) 05/31/20 02:05 Urine Ketones NEGATIVE mg/dL (NEGATIVE) 05/31/20 02:05 Urine Blood NEGATIVE (NEGATIVE) 05/31/20 02:05 Urine Nitrite NEGATIVE (NEGATIVE) 05/31/20 02:05 Urine Bilirubin NEGATIVE (NEGATIVE) 05/31/20 02:05 Urine Urobilinogen NEGATIVE mg/dL (<2.0) 05/31/20 02:05 Ur Leukocyte Esterase NEGATIVE (NEGATIVE) 05/31/20 02:05 Urine WBC (Auto) 2 /HPF 05/31/20 02:05 Urine RBC (Auto) 1 /HPF 05/31/20 02:05 U Hyaline Cast (Auto) 1 /LPF 05/31/20 02:05 Squamous Epi Cells Auto <1 /HPF 05/31/20 02:05 Urine Mucus (Auto) MANY /LPF 05/31/20 02:05 Urine Ascorbic Acid NEGATIVE (NEGATIVE) 05/31/20 02:05 COVID-19 Source See comment 05/30/20 23:35 COVID-19 (DILIP) Not Detected (Not Detect) 05/30/20 23:35 Influenza A (Rapid) NEGATIVE (NEGATIVE) 05/30/20 23:35 Influenza B (Rapid) POSITIVE (NEGATIVE) 05/30/20 23:35 05/30/20 05/31/20 20:00 00:55 Troponin I < 0.012 < 0.012 Impressions: Chest X-Ray 05/30/20 19:39 IMPRESSION: No acute findings in chest. Stroke Is this a Stroke Patient?: No Acute Heart Failure Is this a Heart Failure Patient?: No
[2020-06-01] MEDS ORDERED: FLUTICASONE NASAL SPRAY 50 MCG/SPRY 120 SPRAY/16 GM NASL SCH (18:00)
[2020-06-01] MEDS ORDERED: MULTIVITAMIN WITH MINERALS PO SCH (18:00)
[2020-06-01] MEDS ORDERED: HYDROXYZINE HCL 10 MG TABLET PO SCH (18:00)
[2020-06-01] MEDS ORDERED: LOSARTAN POTASSIUM 25 MG TABLET PO SCH (18:00)
[2020-06-01] MEDS ORDERED: CHOLECALCIFEROL (D3) 1,000 UNIT (25 MCG) TABLET PO SCH (18:00)
[2020-06-01] MEDS ORDERED: MULTIVITAMIN TABLET PO SCH (18:00)
[2020-06-01] MEDS ORDERED: FLUOXETINE HCL 20 MG CAPSULE PO SCH (18:00)
--- NOTE | 2020-06-02 19:26 | XCELERA REPORT ---
[address] [address] Transthoracic Echocardiogram Report Name: TREVOR SANDOVAL Age: 55 yrs Gender: Male : 1965 Patient Status: Inpatient Patient Location: [address] [place], [place] [id number] Study Date: 05/31/2020 09:06 AM Height: 72 in Weight: 212 lb BSA: 2.2 m2 Procedure: A two-dimensional transthoracic echocardiogram with color flow and Doppler was performed. The study was technically limited with all images being suboptimal in quality. Reason For Study: HTN,SOB History: HTN. Shortness of breath. Ordering Physician: FERNY NIÑO Performed By: Gillian Freed Interpretation Summary The left ventricle is normal in size. There is normal left ventricular wall thickness. LV EF is 60% to 65% Left ventricular systolic function is normal. Doppler measurements suggest impaired left ventricular relaxation, which is associated with grade I/IV or mild diastolic dysfunction The left ventricular wall motion is normal. There is no thrombus. Cannot assess asd,vsd , OR pfo. The right ventricle is grossly normal size. The right atrium is normal. The left atrial size is normal. There is no evidence of mitral valve prolapse. There is no mitral valve stenosis. There is a trace amount of mitral regurgitation There is no vegetation seen on the mitral valve. There is no aortic valvular vegetation. There is no aortic valve stenosis No aortic regurgitation is present. There is no tricuspid stenosis. There is a trace amount of tricuspid regurgitation Tricuspid regurgitation jet envelope not well defined to measure RV systolic pressure accurately. There is no pulmonic valvular stenosis. There is no pulmonic valvular regurgitation. The aortic root is normal size. There is no pericardial effusion. MMode/2D Measurements & Calculations RVDd: 2.8 cm LVIDd: 6.1 cm FS: 31.5 % Ao root diam: 3.3 cm IVSd: 1.1 cm LVIDs: 4.2 cm EDV(Teich): 184.2 ml Ao root area: 8.7 cm2 LVPWd: 1.1 cm ESV(Teich): 76.5 ml LA dimension: 3.6 cm EF(Teich): 58.5 % Doppler Measurements & Calculations MV E max víctor: MV P1/2t max víctor: Ao V2 max: LV V1 max P.2 cm/sec 79.0 cm/sec 119.5 cm/sec 4.8 mmHg MV A max víctor: MV P1/2t: 37.1 msec Ao max PG: LV V1 max: 90.6 cm/sec MVA(P1/2t): 5.9 cm2 5.7 mmHg 109.1 cm/sec MV E/A: 0.82 MV dec slope: 623.5 cm/sec2 MV dec time: 0.16 sec PA V2 max: 83.9 cm/sec PA max P.8 mmHg Left Ventricle The left ventricle is normal in size. There is normal left ventricular wall thickness. LV EF is 60% to 65%. Left ventricular systolic function is normal. Doppler measurements suggest impaired left ventricular relaxation, which is associated with grade I/IV or mild diastolic dysfunction. The left ventricular wall motion is normal. There is no thrombus. Cannot assess asd,vsd , OR pfo. Right Ventricle The right ventricle is grossly normal size. Atria The right atrium is normal. The left atrial size is normal. Mitral Valve There is no evidence of mitral valve prolapse. There is no vegetation seen on the mitral valve. There is no mitral valve stenosis. There is a trace amount of mitral regurgitation. Aortic Valve There is no aortic valvular vegetation. There is no aortic valve stenosis. No aortic regurgitation is present. Tricuspid Valve There is no tricuspid stenosis. There is a trace amount of tricuspid regurgitation. Tricuspid regurgitation jet envelope not well defined to measure RV systolic pressure accurately. Pulmonic Valve There is no pulmonic valvular stenosis. There is no pulmonic valvular regurgitation. Great Vessels The aortic root is normal size. The inferior vena cava was not visualized. Effusions There is no pericardial effusion. : FERNY NIÑO Lakshmi
== END 2020-06-01 15:15 | disposition home or self-care (01) ==
LOC: ER 19:23 → OBSVTOIN 05-31 00:09 → EH 05-31 00:09 → INTOOBSV 05-31 00:09 → 3W 05-31 04:56
PROVIDERS: ADMIT Internal Medicine; ATTEND Internal Medicine
DX: J10.1 Influenza due to other identified influenza virus with other respiratory manifestations (principal); Z03.818 Encounter for observation for suspected exposure to other biological agents ruled out; J45.909 Unspecified asthma, uncomplicated; R07.9 Chest pain, unspecified; F32.9 Major depressive disorder, single episode, unspecified; M25.551 Pain in right hip; G89.29 Other chronic pain; R22.9 Localized swelling, mass and lump, unspecified; M54.9 Dorsalgia, unspecified; R42 Dizziness and giddiness; Z79.899 Other long term (current) drug therapy
CPT/HCPCS: 93005 ×2; 99285; 96374; 36415 ×2; 82803; 82550 ×2; 82728; 83615; 83690; 83735; 85025; 85384; 85610; 85730; 87635; 86140; 80053 ×2; 81001; 84484 ×2; 85379; 87804; 93306; 71045; 93010 ×2; 36600; G0378 ×2; J8540; J1885 ×3; J1650 ×2; J3490 ×6; J7030 ×3; J1100 ×2; C9803